=== PATIENT | male | born 1950 | race Caucasian/White ===

== ENCOUNTER 2020-03-12 14:12 | Inpatient (IN) | payer MEDICARE ==
[~2020-03-12] VITALS: Ht 182.9 cm; Wt 133.8 kg
--- NOTE | ~2020-03-12 | EC ---
PATIENT:BRANDI BROWN DATE OF SERVICE: 03/12/20 SEX: M MEDICAL RECORD: [id number] DATE OF : 50 LOCATION:D.M2 D.210 AGE OF PATIENT: 69 ADMISSION DATE: 03/12/20 REFERRING PHYSICIAN: INTERPRETING PHYSICIAN: CLARK VANCE MD ECHOCARDIOGRAM REPORT ECHO CHARGES 4 ECHO COMPLETE Date: 03/13/20 CLINICAL DIAGNOSIS: CMP ECHOCARDIOGRAPHIC MEASUREMENTS (adult normal given) AC root (d.<3.7cm) 3.5 cm LV Septum d (<1.2 cm> 1.1 cm Valve Excursion 1.7 cm LV Septum (systole) 1.3 cm Left Atria (s.<4.0cm> 4.2 cm LVPW d(<1.2cm) 1.0 cm RV (d.<2.3cm) 4.1 cm LVPW (sytole) 1.1 cm LV diastole(<5.6CM) 7.7 cm MV E-F(>70mm/sec) cm LV systole 6.3 cm LVOT Diameter 2.3 cm MV exc.(>10mm) 0.8 cm Est.ejection fraction (50-75%) % DOPPLER: LVIT cm/sec A 57 cm/sec E 124 cm/sec LA cm/sec RVSP 41 mmHg LVOT 57 cm/sec AOP1/2T m/s Asc. Ao 185 cm/sec RVOT 48 cm/sec RA cm/sec PA 102 cm/sec AV Gradient Peak 13.7 mmHg AV Mean 8.8 mmHg AV Area 1.5 cm MV Gradient Peak 7.6 mmHg MV Mean 3.0 mmHg MV Area cm COMMENTS: Communications Clerk: Elias BLACK Family Resource Management Specialist: 5 Dr. Vance TAPE# PACS Pericardial Effusion N DATE OF SERVICE: CLINICAL INDICATION: Cardiomyopathy. FINDINGS: Left ventricle - dilated left ventricular chamber size with severe global LV contractile dysfunction, ejection fraction 15% to 20%. Left atrial chamber mildly dilated. Right atrial and right ventricular chamber size and function appears normal. Mitral valve appears normal. Mild regurgitation. Aortic valve appears normal. No aortic stenosis/regurgitation. Tricuspid valve appears normal. Mild tricuspid regurgitation. Pulmonic valve appears normal. ECHOCARDIOGRAM REPORT [id number] BRANDI BROWN No pulmonic insufficiency. No pericardial effusion visualized. IMPRESSION: Dilated left ventricular chamber with severe global left ventricular contractile dysfunction with an ejection fraction of 15% to 20%. TRANSINT:[id number] Voice Confirmation ID: [id number] DOCUMENT ID: [id number] CLARK VANCE MD CC: [id number] DICTATION DATE: 03/14/20 1238 LIMITED RADIOLOGY TECHNICIAN: 03/14/20 1526 ADM IN [facility] [address] [id number]
[2020-03-12 14:41] VITALS: BP 117/65
[2020-03-12 14:48] LABS: BASOPHILS 0.3 % (0-2); EOSINOPHILS 5.7 % (0-7); HEMATOCRIT 27.3 % (42.0-54.0); HEMOGLOBIN 8.4 g/dL (13.5-17.5); LYMPHOCYTES 9.6 % (15-50); MCHC 30.8 g/dL (31.0-37.0); MCV 87.8 fL (80.0-100.0); MEAN PLATELET VOLUME 10.1 fL (7.4-10.4); MONOCYTES 11.8 % (2-11); NEUTROPHILS 71.6 % (40-80); PLATELET COUNT 115 10x3/uL (130-400); RBC 3.11 10x6/uL (4.20-6.10); RDW 17.1 % (11.5-14.5); WBC 5.8 10x3/uL (4.8-10.8)
[2020-03-12 15:04] LABS: APTT 43.3 SECONDS (22.8-39.4); INR 1.52 (0.85-1.17); PROTIME 18.1 SECONDS (11.6-15.0)
[2020-03-12 16:03] LABS: ANION GAP 12.9 mmol/L (8-16); CALCIUM 8.2 mg/dL (8.5-10.1); CARBON DIOXIDE 26.2 mmol/L (21.0-32.0); CREATININE - SERUM 3.8 mg/dL (0.6-1.3); POTASSIUM - SERUM 5.1 mmol/L (3.5-5.1)
[2020-03-12 16:06] VITALS: BP 117/65
[2020-03-12 16:09] LABS: ALBUMIN 3.5 g/dL (3.4-5.0); BILIRUBIN - TOTAL 0.58 mg/dL (0.2-1.3); PROTEIN - SERUM 5.9 g/dL (6.4-8.2)
--- NOTE | 2020-03-12 16:14 | NUR ---
BODY AUDIT WITH MULTIPLE AREAS, ABDOMEN OBESE, FIRM AND DISTENDED WITH 2 BANDAIDS NOTED FROM PREVIOUS DRAINAGE OF FLUID. LEFT ELBOW WITH BLEEDING SKIN TEAR, DRESSING CHANGED, BOTH LOWER LEGS WITH CELLULITIS, LEFT WITH OPEN BLISTERS AND WEEPING FLUID, DRESSING CHANGED AND PADS UNDER LEG. RIGHT KNEE WITH DRY SCALY SKIN NOTED. LEFT FOOT 2ND TOE WITH OPEN SCAB NOTED AND RIGHT FOOT GREAT TOE WITH OPEN BLISTER, DRESSING APPLIED. . RIGHT BUTTOCK WITH SHEARING NOTED, LEFT BUTTOCK WITH SCAB NOTED.
[2020-03-12 20:00] VITALS: BP 100/48
[2020-03-13] VITALS: BP 92/48
[2020-03-13 04:00] VITALS: BP 98/55
[2020-03-13] MEDS ORDERED: ENTRESTO 49 MG1 EACH PO (05:51)
[2020-03-13] MEDS ORDERED: ISOSORBIDE MONO20 MG PO (05:52)
[2020-03-13] MEDS ORDERED: VITAMIN D50000 UNI2 PO (05:53)
[2020-03-13] MEDS ORDERED: ANORO ELLIPTA1 EACH INH (05:53)
[2020-03-13] MEDS ORDERED: TRADJENTA5 MG PO (05:54)
[2020-03-13] MEDS ORDERED: TORSEMIDE20 MG PO (05:55)
[2020-03-13] MEDS ORDERED: COREG12.5 MG PO (05:56)
[2020-03-13] MEDS ORDERED: XANAX0.25 MG PO (05:57)
--- NOTE | 2020-03-13 07:16 | NUR ---
RECEIVE SHIFT REPORT. WAS TOLD THAT PATIENT WAS BLEEDING FROM RIGHT CHEST HEMOSPLIT AND DRESSING WAS CHANGED 3 TIMES PER ELECTRICIAN'S HELPER. WENT IN AND ASSESSED PATIENT WITH A SATURATED DRESSING. WE PLACED A SANDBAG ON AT 0716 WILL REASSESS IN 20-[address] MIN[address] WILL TALK WITH [address]. CORDON ABOUT THE PLAN. WILL CONTINUE TO MONITOR.
[2020-03-13 07:49] LABS: BASOPHILS 0.2 % (0-2); EOSINOPHILS 5.5 % (0-7); HEMATOCRIT 26.1 % (42.0-54.0); LYMPHOCYTES 17.5 % (15-50); MCHC 30.7 g/dL (31.0-37.0); MCV 88.2 fL (80.0-100.0); MEAN PLATELET VOLUME 9.6 fL (7.4-10.4); MONOCYTES 2.3 % (2-11); NEUTROPHILS 73.5 % (40-80); PLATELET COUNT 136 10x3/uL (130-400); RBC 2.96 10x6/uL (4.20-6.10); RDW 17.3 % (11.5-14.5); WBC 5.8 10x3/uL (4.8-10.8)
[2020-03-13 08:00] LABS: INR 1.29 (0.85-1.17)
[2020-03-13 08:13] LABS: % SATURATION 16 % (15-55); IRON 46 ug/dl (35-150); TOTAL IRON BIND CAPACITY 275 ug/dl (260-445); UNSAT IRON BIND CAPACITY 229 ug/dl (150-375)
[2020-03-13 08:34] LABS: ALBUMIN 3.2 g/dL (3.4-5.0); ANION GAP 11.1 mmol/L (8-16); BILIRUBIN - TOTAL 0.61 mg/dL (0.2-1.3); CALCIUM 8.3 mg/dL (8.5-10.1); CARBON DIOXIDE 28.3 mmol/L (21.0-32.0); CREATININE - SERUM 3.5 mg/dL (0.6-1.3); POTASSIUM - SERUM 5.4 mmol/L (3.5-5.1); PROTEIN - SERUM 5.6 g/dL (6.4-8.2)
--- NOTE | 2020-03-13 08:52 | NUR ---
RESUMED PATIENT HOME MEDICATION XANAX PER ORDERS FROM DR. CORDON
[2020-03-13 09:06] LABS: VANCOMYCIN - RANDOM 1.1 ug/mL (10.0-20.0)
[2020-03-13 10:44] VITALS: BP 107/61
[2020-03-13 13:47] VITALS: Ht 182.9 cm; Wt 133.8 kg
[2020-03-13 14:13] VITALS: BP 90/45
[2020-03-13 20:00] VITALS: BP 130/49
[2020-03-14 02:06] VITALS: BP 131/53
[2020-03-14 05:53] VITALS: BP 115/53
--- NOTE | 2020-03-14 05:56 | NUR ---
I have reviewed this patient and I concur with the Shift Assessment completed by the Licensed Practical Nurse today this shift.
[2020-03-14 07:14] LABS: HEP B CORE AB TOTAL Negative (Negative); HEPATITIS C ANTIBODY <0.1 (0.0-0.9)
[2020-03-14 07:36] LABS: BASOPHILS 0.3 % (0-2); EOSINOPHILS 3.1 % (0-7); HEMATOCRIT 28.2 % (42.0-54.0); HEMOGLOBIN 8.7 g/dL (13.5-17.5); IMMATURE GRANULOCYTES 0.9 % (0-5); LYMPHOCYTES 14.1 % (15-50); MCH 27.4 pg (26.0-34.0); MCHC 30.9 g/dL (31.0-37.0); MCV 88.7 fL (80.0-100.0); MEAN PLATELET VOLUME 9.9 fL (7.4-10.4); NEUTROPHILS 79.6 % (40-80); RBC 3.18 10x6/uL (4.20-6.10); RDW 17.2 % (11.5-14.5)
[2020-03-14 07:39] LABS: PLATELET COUNT 190 10x3/uL (130-400)
[2020-03-14 08:13] LABS: ALBUMIN 3.6 g/dL (3.4-5.0); ANION GAP 15.3 mmol/L (8-16); BILIRUBIN - TOTAL 0.78 mg/dL (0.2-1.3); CALCIUM 8.9 mg/dL (8.5-10.1); CARBON DIOXIDE 25.3 mmol/L (21.0-32.0); POTASSIUM - SERUM 5.6 mmol/L (3.5-5.1); PROTEIN - SERUM 6.6 g/dL (6.4-8.2); VANCOMYCIN - RANDOM 0.7 ug/mL (10.0-20.0)
[2020-03-14 08:38] VITALS: BP 115/67
[2020-03-14 08:50] LABS: INR 1.32 (0.85-1.17); PROTIME 16.2 SECONDS (11.6-15.0)
--- NOTE | 2020-03-14 09:22 | NUR ---
PT AWAKE AND OREINTED WHEN I ENTERED ROOM. REQUESTED TO GO TO BEDSIDE COMMODE. PT TRANSFERED SELF UNASSISTED. REFUSED TO TRANSFER BACK TO THE BED WHEN HE WAS FINISHED STATING HE DOES NOT FEEL LIKE IT BUT ALSO DOES NOT WANT TO SIT IN THE RECLINER. STILL ON BSC AT THIS TIME. ADMINSITERED PRN ANXIETY MEDICATION AND PAIN MEDS PER PTS REQUEST. CL IN REACH.
--- NOTE | 2020-03-14 10:07 | NUR ---
I have reviewed this patient and I concur with the Shift Assessment completed by the Licensed Practical Nurse today this shift.
[2020-03-14 11:56] VITALS: BP 99/51
--- NOTE | 2020-03-14 19:56 | NUR ---
PAGED TO SEE IF COULD GET SOMETHING ELSE FOR PAIN
--- NOTE | 2020-03-14 20:15 | NUR ---
SPOKE WITH ABBY, SHE ORDER A 1 TIME DOZE OF 50MG TRAMADOL
[2020-03-14 20:30] VITALS: BP 105/44
[2020-03-15 00:30] VITALS: BP 113/63
[2020-03-15 04:30] VITALS: BP 96/57
--- NOTE | 2020-03-15 05:00 | NUR ---
I have reviewed this patient and I concur with the Shift Assessment completed by the Licensed Practical Nurse today this shift.
[2020-03-15 07:25] LABS: ALBUMIN 3.5 g/dL (3.4-5.0); ANION GAP 13.9 mmol/L (8-16); BILIRUBIN - TOTAL 0.75 mg/dL (0.2-1.3); CALCIUM 8.4 mg/dL (8.5-10.1); CARBON DIOXIDE 26.1 mmol/L (21.0-32.0); CREATININE - SERUM 3.7 mg/dL (0.6-1.3)
[2020-03-15 07:29] LABS: INR 1.28 (0.85-1.17); PROTIME 15.9 SECONDS (11.6-15.0)
[2020-03-15 07:30] LABS: BASOPHILS 0.2 % (0-2); EOSINOPHILS 3.9 % (0-7); HEMATOCRIT 26.9 % (42.0-54.0); IMMATURE GRANULOCYTES 0.6 % (0-5); LYMPHOCYTES 5.3 % (15-50); MCH 26.6 pg (26.0-34.0); MCHC 29.7 g/dL (31.0-37.0); MCV 89.4 fL (80.0-100.0); MEAN PLATELET VOLUME 9.7 fL (7.4-10.4); MONOCYTES 10.3 % (2-11); NEUTROPHILS 79.7 % (40-80); PLATELET COUNT 161 10x3/uL (130-400); RBC 3.01 10x6/uL (4.20-6.10); RDW 17.4 % (11.5-14.5); WBC 8.7 10x3/uL (4.8-10.8)
[2020-03-15 08:32] VITALS: BP 103/57
[2020-03-15 12:40] VITALS: BP 127/52
--- NOTE | 2020-03-15 13:40 | NUR ---
PT AWAKE AND ORIENTED, LYING IN BED WHEN I ENTERED. TOOK ALL MEDICATIONS IWHTOUT COMPLICATIONS. TOLERATED ADB SCAN. NO COMPLAINTS OR CONCERNS. NO VISOTORS AT BEDSIDE. CL IN REACH, SRX2
--- NOTE | 2020-03-15 14:28 | MORECARE ---
CASE MANAGEMENT DISCHARGE SUMMARY PATIENT: BRANDI CORTEZ UNIT: [id number] ADM DATE: 03/12/20 AGE: 69 : 50 SEX: M ROOM/BED: D.2109 AUTHOR: NIGHATDOC PHYSICIAN: REFERRING PHYSICIAN: ROMARIO CORDON DO DATE OF SERVICE: 03/15/20 Discharge Plan Patient Name: BRANDI CORTEZ Facility: [facility]:[place] : 1950 Planned Disposition: SNF w Planned Readmission Anticipated Discharge Date: Discharge Date: Expected LOS: Initial Reviewer: [email or web address] Initial Review Date: 03/15/2020 Generated: 03/15/20 3:27 pm Comments DCP- Discharge Planning Updated by [email or web address]: Hallie Mariscal on 03/15/20 9:[address] CM called [facility] and spoke with Dario. Dario states patient is in the rehab part and he cannot come back today. States he will have to be evaluated again by admissions to come back to the rehab area. CM will continue to follow and assist with discharge planning/needs. DCPIA - Discharge Planning Initial Assessment Updated by [email or web address]: Hallie Mariscal on 03/15/20 2:25 pm * Is the patient Alert and Oriented? Yes * PCP Azalia Bradford NP at [facility] * Pharmacy [facility] in [place] * Preadmission Environment [facility] Facility * Facility Name [facility] * ADLs Partial Dependent * Partial ADLs (Assistance needed) Ambulation Dressing Medication Management Toileting Transfers * Equipment Other Oxygen * Other Equipment Portable oxygen * List name and contact numbers for known caregivers / representatives who currently or will assist patient after discharge: Betsy Cortez - DTR - [phone] * Verbal permission to speak to the caregivers and representatives has been obtained from the patient. Yes * Community resources currently utilized Home Health Other * Please name any agencies selected above. Dialysis at [facility] in [place] MWF at [address] home health in the past * Additional services required to return to the preadmission environment? No * Can the patient safely return to the preadmission environment? Yes * Has this patient been hospitalized within the prior 30 days at any hospital? Yes External Providers External Provider: [facility] Next Contact Date: Service Request Date: Service Type: Resolution: Reviewer: Comments: Patient Name: BRANDI CORTEZ Page [phone] at 1428 All edits/amendments must be made on the electronic document DICTATION DATE: 03/15/201426 STREET VENDOR: LUCAS 03/15/201426 RPT#: [id number] DC DATE: STATUS: ADM IN [facility] [address] [place] [address] END OF REPORT
--- NOTE | 2020-03-15 14:37 | MORECARE ---
CASE MANAGEMENT DISCHARGE SUMMARY PATIENT: BRANDI BROWN UNIT: [id number] ADM DATE: 03/12/20 AGE: 69 : 50 SEX: M ROOM/BED: D.2104 AUTHOR: NIGHATDOC PHYSICIAN: REFERRING PHYSICIAN: ROMARIO CORDON DO DATE OF SERVICE: 03/15/20 Discharge Plan Patient Name: BRANDI BROWN Facility: [facility]:[place] : 1950 Planned Disposition: SNF w Planned Readmission Anticipated Discharge Date: Discharge Date: Expected LOS: Initial Reviewer: [email or web address] Initial Review Date: 03/15/2020 Generated: 03/15/20 3:37 pm Comments DCP- Discharge Planning Updated by [email or web address]: Hallie Mariscal on 03/15/20 1:[address] Patient Name: BRANDI BROWN Admission Status: Elective Accout number: [id number] Admission Date: 03-12-2020 : 1950 Admission Diagnosis: Attending: RAYRAY Current LOS: 3 Anticipated DC Date: Planned Disposition: SNF w Planned Readmission Primary Insurance: MEDICARE A & B DC PLAN: [facility] ANTICIPATED NEEDS: P/U to be provided by [facility] CM met with patient to complete initial dc planning assessment. CM educated patient on the CM role and verbal consent given by patient to complete assessment. CM verified patient's address, phone number, and emergency contact phone numbers. Patient is currently in rehab @ [facility] in [place]. At discharge patient plans to return to Nursing and Rehab and feels this is a safe discharge. ORTIZ form signed by patient for return to [facility]. Signed form placed in chart and signed form given to patient. Patient is asking about getting a motorized wheelchair and a ramp built for his home. I informed him that [facility] social workers will assist with his request. He understands that Medicare will not pay for DME needed for the home when discharging to a rehab until close to discharge from rehab. He is considering the possibility of living with family or in [facility] franchise manager if unable to return to his home. Transportation provider at discharge will be the facility . CM will continue to follow and will assist as needed with dc plans/needs. Customer Contact Representative: Hallie Mariscal DCP- Discharge Planning Updated by [email or web address]: Hallie Mariscal on 03/15/20 9:[address] CM called [facility] and spoke with Dario. Dario states patient is in the rehab part and he cannot come back today. States he will have to be evaluated again by admissions to come back to the rehab area. CM will continue to follow and assist with discharge planning/needs. DCPIA - Discharge Planning Initial Assessment Updated by [email or web address]: Hallie Mariscal on 03/15/20 2:25 pm * Is the patient Alert and Oriented? Yes * PCP Azalia Bradford NP at [facility] * Pharmacy [facility] in [place] * Preadmission Environment Long-Term Facility * Facility Name [facility] * ADLs Partial Dependent * Partial ADLs (Assistance needed) Ambulation Dressing Medication Management Toileting Transfers * Equipment Other Oxygen * Other Equipment Portable oxygen * List name and contact numbers for known caregivers / representatives who currently or will assist patient after discharge: Betsy Diego [facility] - [phone] * Verbal permission to speak to the caregivers and representatives has been obtained from the patient. Yes * Community resources currently utilized Home Health Other * Please name any agencies selected above. Dialysis at [facility] in [place] MWF at [address] [place] home health in the past * Additional services required to return to the preadmission environment? No * Can the patient safely return to the preadmission environment? Yes * Has this patient been hospitalized within the prior 30 days at any hospital? Yes Coverage Notice Reviewer: [email or web address] Cornelio Mariscal Notice Issued Date-Time: 03/15/2020 14:15 Notice Type: IM Discharge Notice Notice Delivered To: Patient Relationship to Patient: Self Morning Nanny Name: Delivery Method: HAND - Hand Delivered Mariangel Days: Prior Verbal Notification: Recipient Understood Notice: Yes Recipient Signature: Yes Med Rec Note Co-signed by Attending: Coverage Notice Comment: IMM explained, signed, given, copy placed in MR Reviewer: [id number] Cornelio Mariscal Notice Issued Date-Time: 03/15/2020 14:31 Notice Type: Patient Choice Letter Notice Delivered To: Patient Relationship to Patient: Self Morning Nanny Name: Delivery Method: HAND - Hand Delivered Mariangel Days: Prior Verbal Notification: Recipient Understood Notice: Yes Recipient Signature: Yes Med Rec Note Co-signed by Attending: Coverage Notice Comment: ORTIZ for Cody Mooney DP export: 03/15/20 1:28 Patient Name: BRANDI BROWN Page [phone] at 1437 All edits/amendments must be made on the electronic document DICTATION DATE: 03/15/201435 [place] REMOTE SENSING SCIENTIST: LUCAS 03/15/201435 RPT#: [id number] DC DATE: STATUS: ADM IN [facility] [address] [place] [address] END OF REPORT
--- NOTE | 2020-03-15 15:17 | NUR ---
PT AWAKE AND ORIENTED, LYING IN BED. WATCHING TV. NO COMPLAINTS OR CONCERNS AT THIS TIME. WILL CNT. TO MONITOR. CL IN REACH, SRX2.
--- NOTE | 2020-03-15 15:30 | NUR ---
I have reviewed this patient and I concur with the Shift Assessment completed by the Licensed Practical Nurse today this shift.
--- NOTE | 2020-03-15 15:31 | NUR ---
I have reviewed this patient and I concur with the Shift Assessment completed by the Licensed Practical Nurse today this shift.
--- NOTE | 2020-03-15 19:30 | NUR ---
RECEIVED REPORT, WILL ASSUME CARE OF PT,PT SLEEPING, NO DISTRESS NOTICED AT THIS TIME, BED IS LOW, SRX2, CALL LIGHT IN REACH, WILL CONTINUE PLAN OF CARE
[2020-03-15 20:46] VITALS: BP 127/41
[2020-03-16 01:31] VITALS: BP 104/59
--- NOTE | 2020-03-16 01:37 | NUR ---
I have reviewed this patient and I concur with the Shift Assessment completed by the Licensed Practical Nurse today this shift.
[2020-03-16 05:41] VITALS: BP 109/60
[2020-03-16 06:23] LABS: BASOPHILS 0.2 % (0-2); EOSINOPHILS 3.6 % (0-7); HEMATOCRIT 29.4 % (42.0-54.0); HEMOGLOBIN 8.7 g/dL (13.5-17.5); IMMATURE GRANULOCYTES 0.6 % (0-5); LYMPHOCYTES 7.8 % (15-50); MCH 26.5 pg (26.0-34.0); MCHC 29.6 g/dL (31.0-37.0); MCV 89.6 fL (80.0-100.0); MEAN PLATELET VOLUME 9.5 fL (7.4-10.4); MONOCYTES 6.4 % (2-11); NEUTROPHILS 81.4 % (40-80); RBC 3.28 10x6/uL (4.20-6.10); RDW 17.6 % (11.5-14.5); WBC 10.4 10x3/uL (4.8-10.8)
[2020-03-16 06:33] LABS: PLATELET COUNT 196 10x3/uL (130-400)
[2020-03-16 07:17] LABS: ALBUMIN 3.6 g/dL (3.4-5.0); ANION GAP 16.3 mmol/L (8-16); BILIRUBIN - TOTAL 0.78 mg/dL (0.2-1.3); CALCIUM 9.1 mg/dL (8.5-10.1); CARBON DIOXIDE 25.1 mmol/L (21.0-32.0); CREATININE - SERUM 4.3 mg/dL (0.6-1.3); POTASSIUM - SERUM 5.4 mmol/L (3.5-5.1); PROTEIN - SERUM 6.9 g/dL (6.4-8.2)
[2020-03-16 08:02] VITALS: BP 117/73
[2020-03-16 08:43] LABS: TROPONIN-I 0.306 ng/mL (0.000-0.060)
[2020-03-16 11:56] VITALS: BP 98/59
[2020-03-16 12:09] LABS: HEPATITIS BE ANTIGEN Negative (Negative)
--- NOTE | 2020-03-16 12:31 | NUR ---
Nutrition Follow-up: Did not eat breakfast this AM; c/o pain and heartburn. Also still c/o constipation. Noted plans for paracentesis tomorrow. Diet: Renal ADA Wt: 295# (03/13) Labs noted: Na 130, K+ 5.4, Glu 108, Alb 3.6 Meds noted: Carafate, Mylanta, Pepcid -Encourage PO intake and honor food preferences within diet restrictions. -RD following.
[2020-03-16 14:10] LABS: CKMB 4.6 U/L (0.0-3.6)
[2020-03-16 14:14] LABS: TROPONIN-I 0.209 ng/mL (0.000-0.060)
--- NOTE | 2020-03-16 14:54 | NUR ---
PT ESCROTED OUT TO DIALYISS VIA BED.
--- NOTE | 2020-03-16 17:52 | NUR ---
PT IN DIALYSIS
--- NOTE | 2020-03-16 18:02 | NUR ---
I have reviewed this patient and I concur with the Shift Assessment completed by the Licensed Practical Nurse today this shift.
--- NOTE | 2020-03-16 19:30 | NUR ---
RECEIVED REPORT, WILL ASSUSME CARE OF PT, SITTING ON SIDE OF BED, DENIES ANY NEEDS AT THIS TIME, BED IS LOW, SRX2, CALL LIGHT IN REACH, WILL CONTINUE PLAN OF CARE
[2020-03-16 23:15] VITALS: BP 112/53
[2020-03-17 03:03] VITALS: BP 91/52
--- NOTE | 2020-03-17 03:28 | NUR ---
I have reviewed this patient and I concur with the Shift Assessment completed by the Licensed Practical Nurse today this shift.
[2020-03-17 05:51] LABS: BASOPHILS 0.3 % (0-2); EOSINOPHILS 3.7 % (0-7); HEMATOCRIT 26.6 % (42.0-54.0); HEMOGLOBIN 7.9 g/dL (13.5-17.5); IMMATURE GRANULOCYTES 0.5 % (0-5); LYMPHOCYTES 11.1 % (15-50); MCH 26.8 pg (26.0-34.0); MCHC 29.7 g/dL (31.0-37.0); MCV 90.2 fL (80.0-100.0); MEAN PLATELET VOLUME 9.2 fL (7.4-10.4); MONOCYTES 2.7 % (2-11); NEUTROPHILS 81.7 % (40-80); PLATELET COUNT 183 10x3/uL (130-400); RBC 2.95 10x6/uL (4.20-6.10); RDW 17.9 % (11.5-14.5); WBC 7.8 10x3/uL (4.8-10.8)
[2020-03-17 06:11] VITALS: BP 100/41
[2020-03-17 06:31] LABS: ALBUMIN 3.4 g/dL (3.4-5.0); ANION GAP 10.8 mmol/L (8-16); BILIRUBIN - TOTAL 0.92 mg/dL (0.2-1.3); CALCIUM 8.7 mg/dL (8.5-10.1); CARBON DIOXIDE 29.9 mmol/L (21.0-32.0); CREATININE - SERUM 3.8 mg/dL (0.6-1.3); POTASSIUM - SERUM 4.7 mmol/L (3.5-5.1); PROTEIN - SERUM 6.2 g/dL (6.4-8.2)
[2020-03-17 07:00] VITALS: BP 113/68
[2020-03-17 08:07] LABS: APTT 34.1 SECONDS (22.8-39.4); INR 1.46 (0.85-1.17); PROTIME 17.6 SECONDS (11.6-15.0)
[2020-03-17 10:30] VITALS: BP 117/57
--- NOTE | 2020-03-17 19:00 | NUR ---
REPORT RECEIVED, WILL CONTINUE POC. PATIENT IS A&O, SITTING UP ON SIDE OF BED. NO S/S OF DISTRESS OBSERVED, RR EVEN AND UNLABORED ON 2L O2 VIA NC. PIV TO RT FA, SL. RT CHEST HEMOSPLIT DRSG C/D/I. SIGNIFICANT BRUISING NOTICED FROM RT SIDE OF NECK DOWN TO RT LOWER ABDOMEN. BLE EDEMA NOTED, WEEPING AND BLISTERES TO LT LOWER LEG. RT GREAT TOE DRSG C/D/I. PATIENT DENIES NEEDS AT THIS TIME. CL IN REACH, BED LOCKED AND LOWERED. WILL CTM.
[2020-03-17 20:00] VITALS: BP 106/63
[2020-03-18] VITALS: BP 91/53
[2020-03-18 04:00] VITALS: BP 181/61
[2020-03-18 05:36] LABS: BASOPHILS 0.3 % (0-2); EOSINOPHILS 2.8 % (0-7); HEMOGLOBIN 8.4 g/dL (13.5-17.5); IMMATURE GRANULOCYTES 0.6 % (0-5); LYMPHOCYTES 5.6 % (15-50); MEAN PLATELET VOLUME 9.4 fL (7.4-10.4); MONOCYTES 8.3 % (2-11); NEUTROPHILS 82.4 % (40-80); PLATELET COUNT 212 10x3/uL (130-400); RBC 3.11 10x6/uL (4.20-6.10); RDW 18.6 % (11.5-14.5); WBC 8.7 10x3/uL (4.8-10.8)
[2020-03-18 06:17] LABS: ALBUMIN 3.6 g/dL (3.4-5.0); BILIRUBIN - TOTAL 1.12 mg/dL (0.2-1.3); CALCIUM 9.2 mg/dL (8.5-10.1); CREATININE - SERUM 4.2 mg/dL (0.6-1.3); PROTEIN - SERUM 6.7 g/dL (6.4-8.2)
[2020-03-18 06:43] LABS: APTT 28.2 SECONDS (22.8-39.4); INR 1.27 (0.85-1.17); PROTIME 15.8 SECONDS (11.6-15.0)
[2020-03-18 07:29] VITALS: BP 103/64
--- NOTE | 2020-03-18 07:53 | NUR ---
REVIEWED HARD CHART FOR CT PARACENTHESIS TODAY. NO BLOOD CONSENT IN IT. DONE
--- NOTE | 2020-03-18 08:25 | NUR ---
ROUNDING DONE WITH PATIENT SITTING ON SIDE OF BED. ABDOMEN IS DISTENDED. FOR CT PARACENTHESIS TODAY. NPO STATUS. CONSENTS SIGNED. GLASSES ON. ON HEART MONITOR. PACEMAKER FELT TO LEFT CHEST WALL. RIGHT HEMISPLIT SEEN WITH DRY INTACT DRESSING.
--- NOTE | 2020-03-18 09:36 | NUR ---
TO DIALYSIS VIA BED AND PORTABLE O2. CHG BATH WAS GIVEN WITH COMPLETE LINEN CHANGE. LEFT LOWER LEG WITH LARGE BLISTER AT TOP OF WILLIS SEEN. VASOLINE GUAZE AND WRAPPED WITH JAILYN WITH STOCKINGNET PLACED OVER THIS. RIGHT LOWER LEG WEEPING, PATIENT DOES NOT WANT IT WRAPPED. PATIENT ASKED FOR XANAX BUT BLOOD PRESSURE IS 103.
--- NOTE | 2020-03-18 10:34 | NUR ---
1ST UNIT OF BLOOD TO BE GIVEN PER DIALYSIS WITH JACKI GILMORE .
--- NOTE | 2020-03-18 12:24 | NUR ---
RETURNS TO ROOM VIA BED.
--- NOTE | 2020-03-18 12:45 | NUR ---
1215-TO RADIOLOGY VIA BED.
--- NOTE | 2020-03-18 13:56 | NUR ---
BACK FROM ROOM FROM PARACENTHESIS. ALBUMIN IS INFUSING. WILL ORDER TRAY.
--- NOTE | 2020-03-18 14:04 | NUR ---
LARGE BRUISED AREA SEEN TO RIGHT SIDE NECK AND PPER CHEST AREA. RIGHT HEMISPLIT SEEN WITH DRY DRESSING.
--- NOTE | 2020-03-18 14:23 | NUR ---
CALL PLACED TO ABBY LARA APN TO STOOL SOFTNER AND LAXATIVE. NEW ORDERS PLACED.
[2020-03-18 15:55] VITALS: BP 119/72
--- NOTE | 2020-03-18 19:00 | NUR ---
REPORT RECEIVED, WILL CONTINUE POC. PATIENT IS SITTING UP AT BEDSIDE, VISIBLE UNCOMFORTABLE. DR. CORDON AT BEDSIDE. NO S/S OF DISTRESS OBSERVED, RR EVEN AND UNLABORED ON 2L O2 VIA NC. PIV TO RT FA, SL. PATIENT DENIES NEEDS AT THIS TIME. CL IN REACH, BED LOCKED AND LOWERED. WILL CTM.
[2020-03-18 20:00] VITALS: BP 111/55
--- NOTE | 2020-03-18 20:50 | NUR ---
ADMINISTERED HS MEDS WITHOUT DIFFICULTY WITH NORCO PER REQUEST. ASSISTED PATIENT TO BSC X1 ASSIST. PATIENT DENIES FURTHER NEEDS AT THIS TIME. CL IN REACH, BED LOCKED AND LOWERED. WILL CTM.
--- NOTE | 2020-03-18 23:28 | NUR ---
ADMINISTERED PRN MORPHINE PER ORDERS. DR. FLORES AT BEDSIDE DRESSING BLE.
--- NOTE | 2020-03-19 06:47 | MORECARE ---
CASE MANAGEMENT DISCHARGE SUMMARY PATIENT: BRANDI CORTEZ UNIT: [id number] ADM DATE: 03/12/20 AGE: 69 : 50 SEX: M ROOM/BED: D.2100 AUTHOR: ADÁN DISLA PHYSICIAN: REFERRING PHYSICIAN: ROMARIO CORDON DO DATE OF SERVICE: 03/19/20 Discharge Plan Patient Name: BRANDI CORTEZ Facility: [facility]:[place] : 1950 Planned Disposition: SNF w Planned Readmission Anticipated Discharge Date: Discharge Date: Expected LOS: Initial Reviewer: [email or web address] Initial Review Date: 03/15/2020 Generated: 03/19/20 7:46 am Comments DCP- Discharge Planning Updated by [email or web address]: Hallie Mariscal on 03/19/20 5:[address] UPDATED NOTES WITH WOUND CARE ORDERS FROM DR FLORES FAXED TO [facility]. CM WILL CONTINUE TO FOLLOW AND ASSIST WITH DC PLANNING/NEEDS. DCP- Discharge Planning Updated by [email or web address]: Hallie Mariscal on 03/15/20 1:[address] Patient Name: BRANDI CORTEZ Admission Status: Elective Accout number: [id number] Admission Date: 03-12-2020 : 1950 Admission Diagnosis: Attending: RAYRAY Current LOS: 3 Anticipated DC Date: Planned Disposition: SNF w Planned Readmission Primary Insurance: MEDICARE A & B DC PLAN: [facility] ANTICIPATED NEEDS: P/U to be provided by [facility] CM met with patient to complete initial dc planning assessment. CM educated patient on the CM role and verbal consent given by patient to complete assessment. CM verified patient's address, phone number, and emergency contact phone numbers. Patient is currently in rehab @ [facility] in [place]. At discharge patient plans to return to Nursing and Rehab and feels this is a safe discharge. ORTIZ form signed by patient for return to [facility]. Signed form placed in chart and signed form given to patient. Patient is asking about getting a motorized wheelchair and a ramp built for his home. I informed him that [facility] social workers will assist with his request. He understands that Medicare will not pay for DME needed for the home when discharging to a rehab until close to discharge from rehab. He is considering the possibility of living with family or in [facility] terminal make up operator if unable to return to his home. Transportation provider at discharge will be the facility . CM will continue to follow and will assist as needed with dc plans/needs. Mixing Roll Operator: Hallie Mariscal DCP- Discharge Planning Updated by [email or web address]: Hallie Mariscal on 03/15/20 9:[address] CM called [facility] and spoke with Dario. Dario states patient is in the rehab part and he cannot come back today. States he will have to be evaluated again by admissions to come back to the rehab area. CM will continue to follow and assist with discharge planning/needs. DCPIA - Discharge Planning Initial Assessment Updated by [email or web address]: Hallie Mariscal on 03/15/20 2:25 pm * Is the patient Alert and Oriented? Yes * PCP Azalia Bradford NP at [facility] * Pharmacy [facility] in [place] * Preadmission Environment Jail Facility * Facility Name [facility] * ADLs Partial Dependent * Partial ADLs (Assistance needed) Ambulation Dressing Medication Management Toileting Transfers * Equipment Other Oxygen * Other Equipment Portable oxygen * List name and contact numbers for known caregivers / representatives who currently or will assist patient after discharge: Betsy Cortez [facility] - [phone] * Verbal permission to speak to the caregivers and representatives has been obtained from the patient. Yes * Community resources currently utilized Home Health Other * Please name any agencies selected above. Dialysis at [facility] in [place] MWF at [address] home health in the past * Additional services required to return to the preadmission environment? No * Can the patient safely return to the preadmission environment? Yes * Has this patient been hospitalized within the prior 30 days at any hospital? Yes Coverage Notice Reviewer: [id number] Cornelio Mariscal Notice Issued Date-Time: 03/15/2020 14:15 Notice Type: IM Discharge Notice Notice Delivered To: Patient Relationship to Patient: Self Banquet Line Cook Name: Delivery Method: HAND - Hand Delivered Mariangel Days: Prior Verbal Notification: Recipient Understood Notice: Yes Recipient Signature: Yes Med Rec Note Co-signed by Attending: Coverage Notice Comment: IMM explained, signed, given, copy placed in MR Reviewer: [id number] Cornelio Mariscla Notice Issued Date-Time: 03/15/2020 14:31 Notice Type: Patient Choice Letter Notice Delivered To: Patient Relationship to Patient: Self Banquet Line Cook Name: Delivery Method: HAND - Hand Delivered Mariangel Days: Prior Verbal Notification: Recipient Understood Notice: Yes Recipient Signature: Yes Med Rec Note Co-signed by Attending: Coverage Notice Comment: ORTIZ for Cody Mooney DP export: 03/15/20 1:37 Patient Name: BRANDI CORTEZ Page 60400 at 0647 All edits/amendments must be made on the electronic document DICTATION DATE: 03/19/20645 RIVER EXPEDITION GUIDE: LUCAS 03/19/20645 RPT#: [id number] DC DATE: STATUS: ADM IN [facility] [address] [place] [address] END OF REPORT
[2020-03-19 09:17] VITALS: BP 110/76
--- NOTE | 2020-03-19 11:14 | NUR ---
PT SITTING UP ON SIDE OF BED. PT ENCOURAGED TO LAY DOWN AND ELEVATE FEET. PT VERBALIZES UNDERSTANDING BUT REFUSES AND STATES "I DONT WANT TO LAY DOWN RIGHT NOW". PT EDUCATED ON PLAN OF CARE AND IMPORTANCE OF ELEVATING LOWER EXTREMITIES. PT VERBALIZES UNDERSTANDING AND CONT TO REFUSE. BED IS IN THE LOWEST POSITION. CALL LIGHT AND BEDSIDE TABLE ARE WITHIN REACH. SIDE RAILS X 2. PT DENIES FURTHER NEEDS. WILL CONT TO MONITOR.
--- NOTE | 2020-03-19 12:26 | NUR ---
Nutrition Follow-up: Ate 100% of breakfast this AM. S/p paracentesis yesterday (-4.5 L); HD yesterday as well. Diet: Renal ADA Wt: 295# (03/13) Labs reviewed Meds noted: Miralax, Colace, Mylanta, Carafate, Pepcid -RD following.
--- NOTE | 2020-03-19 14:33 | NUR ---
PT SITTING ON SIDE OF BED. PT ENCOURAGED TO LAY DOWN TO ELEVAT LOWER EXTREMITIES. PT STATES "I DONT WANT TO LAY DOWN RIGHT NOW". PT EDUCATED ON PLAN OF CARE AND IMPORTANCE OF ELEVATION. PT VERBALIZES UNDERSTANDING AND CONT TO REFUSE TO ELEVATE BLE AT THIS TIME. PT DENIES FURTHER NEEDS. BED IS IN THE LOWEST POSITION. CALL LIGHT AND BEDSIDE TABLE ARE WITHIN REACH. SIDE RAILS X 2. PT DENIES FURTHER NEEDS. WILL CON TO MONITOR.
--- NOTE | 2020-03-19 15:22 | NUR ---
PT IS RESTING IN BED WITH EYES CLOSED. RESPIRATIONS ARE EVEN AND UNLABORED. PT IS EASILY AROUSED WITH VERBAL STIMULATION. PT IS AAO X 4 UPON AROUSAL. ABDOMEN IS DISTENDED. BS HYPOACTIVE X 4. BRUISING NOTED TO RIGHT SIDE FROM EAR TO GROIN. PT WITH PACEMAKER. RIGHT CHEST HEMOSPLIT IN PLACE. DRESSING IS CDI. DRESSING TO BLE IS CDI. PT DENIES PRESENCE OF N/V/DYSPNEA/DIZZINESS. PIV TO RIGHT FA IS SL AND FLUSHES WITHOUT DIFFICULTY. BED IS IN THE LOWEST POSITION. CALL LIGHT AND BEDSIDE TABLE ARE WITHIN REACH. SIDE RAILS X 2. PT DENIES FURTHER NEEDS. WILL CONT TO MONITOR.
[2020-03-19 16:00] VITALS: BP 112/68
--- NOTE | 2020-03-19 17:47 | NUR ---
PT ENCOURAGED TO REST IN BED LAYING DOWN WITH BLE ELEVATED. PT CONT TO REFUSE. PT EDUCATED ON PLAN OF CARE AND IMPORTANCE OF ELEVATION. PT VERBALIZE UNDERSTANDING AND CONT TO REFUSE AT THIS TIME. BED IS IN THE LOWEST POSITION. CALL LIGHT AND BEDSIDE TABLE ARE WITHIN REACH. SIDE RAILS X 2. PT DENIES FURTHER NEEDS. WILL CONT TO MONITOR.
[2020-03-19 20:00] VITALS: BP 104/83
[2020-03-20 04:00] VITALS: BP 113/75
[2020-03-20 09:00] VITALS: BP 105/65
--- NOTE | 2020-03-20 11:41 | MORECARE ---
CASE MANAGEMENT DISCHARGE SUMMARY PATIENT: BRANDI CORTEZ UNIT: [id number] ADM DATE: 03/12/20 AGE: 69 : 50 SEX: M ROOM/BED: D.2108 AUTHOR: NIGHAT,DOC PHYSICIAN: REFERRING PHYSICIAN: ROMARIO CORDON DO DATE OF SERVICE: 03/20/20 Discharge Plan Patient Name: BRANDI CORTEZ Facility: [facility]:[place] : 1950 Planned Disposition: SNF w Planned Readmission Anticipated Discharge Date: 03/23/20 Discharge Date: Expected LOS: 11 Initial Reviewer: [id number] Initial Review Date: 03/15/2020 Generated: 03/20/20 12:40 pm Comments DCP- Discharge Planning Updated by [email or web address]: Denise Carrillo on 03/20/20 10:[address] CM spoke with Cody Moffett regarding probable DC on Monday. Per Betina, the patient will return to a SNF bed. Betina asks if family can transport patient back to the facility. CM contacted Betsy Cortez (dtr) [phone], regarding transportation on Monday. Betsy states she cannot take off, but will reach out to her brother to see if he could transport patient back to [facility]. DCP- Discharge Planning Updated by [email or web address]: Hallie Mariscal on 03/19/20 5:[address] UPDATED NOTES WITH WOUND CARE ORDERS FROM DR FLORES FAXED TO [facility]. CM WILL CONTINUE TO FOLLOW AND ASSIST WITH DC PLANNING/NEEDS. DCP- Discharge Planning Updated by [email or web address]: Hallie Mariscal on 03/15/20 1:[address] Patient Name: BRANDI CORTEZ Admission Status: Elective Accout number: [id number] Admission Date: 03-12-2020 : 1950 Admission Diagnosis: Attending: RAYRAY Current LOS: 3 Anticipated DC Date: Planned Disposition: SNF w Planned Readmission Primary Insurance: MEDICARE A & B DC PLAN: [facility] [place] ANTICIPATED NEEDS: P/U to be provided by [facility] CM met with patient to complete initial dc planning assessment. CM educated patient on the CM role and verbal consent given by patient to complete assessment. CM verified patient's address, phone number, and emergency contact phone numbers. Patient is currently in rehab @ [facility] in [place]. At discharge patient plans to return to Nursing and Rehab and feels this is a safe discharge. ORTIZ form signed by patient for return to [facility]. Signed form placed in chart and signed form given to patient. Patient is asking about getting a motorized wheelchair and a ramp built for his home. I informed him that [facility] social workers will assist with his request. He understands that Medicare will not pay for DME needed for the home when discharging to a rehab until close to discharge from rehab. He is considering the possibility of living with family or in [facility] longterm if unable to return to his home. Transportation provider at discharge will be the facility . CM will continue to follow and will assist as needed with dc plans/needs. Bookkeeping Clerk: Hallie Mariscal DCP- Discharge Planning Updated by [email or web address]: Hallie Mariscal on 03/15/20 9:[address] CM called [facility] and spoke with Dario. Dario states patient is in the rehab part and he cannot come back today. States he will have to be evaluated again by admissions to come back to the rehab area. CM will continue to follow and assist with discharge planning/needs. DCPIA - Discharge Planning Initial Assessment Updated by [id number]: Hallie Mariscal on 03/15/20 2:25 pm * Is the patient Alert and Oriented? Yes * PCP Azalia Bradford NP at [facility] * Pharmacy [facility] in [place] * Preadmission Environment Care Home Facility * Facility Name [facility] * ADLs Partial Dependent * Partial ADLs (Assistance needed) Ambulation Dressing Medication Management Toileting Transfers * Equipment Other Oxygen * Other Equipment Portable oxygen * List name and contact numbers for known caregivers / representatives who currently or will assist patient after discharge: Betsytariq Cortez - R - [phone] * Verbal permission to speak to the caregivers and representatives has been obtained from the patient. Yes * Community resources currently utilized Home Health Other * Please name any agencies selected above. Dialysis at [facility] in [place] MWF at [address] [facility] health in the past * Additional services required to return to the preadmission environment? No * Can the patient safely return to the preadmission environment? Yes * Has this patient been hospitalized within the prior 30 days at any hospital? Yes Coverage Notice Reviewer: [id number] Cornelio Mariscal Notice Issued Date-Time: 03/15/2020 14:15 Notice Type: IM Discharge Notice Notice Delivered To: Patient Relationship to Patient: Self Ammonia Refrigeration Technician Name: Delivery Method: HAND - Hand Delivered Mariangel Days: Prior Verbal Notification: Recipient Understood Notice: Yes Recipient Signature: Yes Med Rec Note Co-signed by Attending: Coverage Notice Comment: IMM explained, signed, given, copy placed in MR Reviewer: [id number] Cornelio Mariscal Notice Issued Date-Time: 03/15/2020 14:31 Notice Type: Patient Choice Letter Notice Delivered To: Patient Relationship to Patient: Self Ammonia Refrigeration Technician Name: Delivery Method: HAND - Hand Delivered Mariangel Days: Prior Verbal Notification: Recipient Understood Notice: Yes Recipient Signature: Yes Med Rec Note Co-signed by Attending: Coverage Notice Comment: ORTIZ for Cody Garcia Last DP export: 03/19/20 5:47 Patient Name: BRANDI CORTEZ Page [id number] at 1141 All edits/amendments must be made on the electronic document DICTATION DATE: 03/20/20 1140 EMPLOYMENT COORDINATOR: LUCAS 03/20/20 1140 RPT#: [id number] DC DATE: STATUS: ADM IN [facility] [address] [place] [address] END OF REPORT
--- NOTE | 2020-03-20 13:27 | MORECARE ---
CASE MANAGEMENT DISCHARGE SUMMARY PATIENT: BRANDI CORTEZ UNIT: [id number] ADM DATE: 03/12/20 AGE: 69 : 50 SEX: M ROOM/BED: D.210 AUTHOR: NIGHAT,DOC PHYSICIAN: REFERRING PHYSICIAN: ROMARIO CORDON DO DATE OF SERVICE: 03/20/20 Discharge Plan Patient Name: BRANDI CORTEZ Facility: [facility]:[place] : 1950 Planned Disposition: SNF w Planned Readmission Anticipated Discharge Date: 03/23/20 Discharge Date: Expected LOS: 11 Initial Reviewer: [email or web address] Initial Review Date: 03/15/2020 Generated: 03/20/20 2:26 pm Comments DCP- Discharge Planning Updated by [id number]: Denise Carrillo on 03/20/20 12:[address] 1100: CM contacted Betsy Cortez (dtr) [phone], regarding transportation for DC on Monday. 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 If it's in the afternoon, Betsy will have to take off from her work in order to pick him up. GLENNA spoke with Amie Moffett regarding probable DC on Monday. Per Betina, the patient will return to a SNF bed. Betina asks if family can transport patient back to the facility. GLENNA contacted Betsy Cortez (dtr) [phone], regarding transportation on Monday. Betsy states she cannot take off, but will reach out to her brother to see if he could transport patient back to [facility]. DCP- Discharge Planning Updated by [email or web address]: Hallie Mariscal on 03/19/20 5:[address] UPDATED NOTES WITH WOUND CARE ORDERS FROM DR FLORES FAXED TO [facility]. CM WILL CONTINUE TO FOLLOW AND ASSIST WITH DC PLANNING/NEEDS. DCP- Discharge Planning Updated by [id number]: Hallie Mariscal on 03/15/20 1:[address] Patient Name: BRANDI CORTEZ Admission Status: Elective Accout number: [id number] Admission Date: 03-12-2020 : 1950 Admission Diagnosis: Attending: RAYRAY Current LOS: 3 Anticipated DC Date: Planned Disposition: SNF w Planned Readmission Primary Insurance: MEDICARE A & B DC PLAN: [facility] ANTICIPATED NEEDS: P/U to be provided by [facility] CM met with patient to complete initial dc planning assessment. CM educated patient on the CM role and verbal consent given by patient to complete assessment. CM verified patient's address, phone number, and emergency contact phone numbers. Patient is currently in rehab @ [facility] in [place]. At discharge patient plans to return to Nursing and Rehab and feels this is a safe discharge. ORTIZ form signed by patient for return to [facility]. Signed form placed in chart and signed form given to patient. Patient is asking about getting a motorized wheelchair and a ramp built for his home. I informed him that [facility] social workers will assist with his request. He understands that Medicare will not pay for DME needed for the home when discharging to a rehab until close to discharge from rehab. He is considering the possibility of living with family or in [facility] residential if unable to return to his home. Transportation provider at discharge will be the facility . CM will continue to follow and will assist as needed with dc plans/needs. Prototype Deicer Assembler: Hallie Mariscal DCP- Discharge Planning Updated by [id number]: Hallie Mariscal on 03/15/20 9:[address] CM called [facility] and spoke with Dario. Dario states patient is in the rehab part and he cannot come back today. States he will have to be evaluated again by admissions to come back to the rehab area. CM will continue to follow and assist with discharge planning/needs. DCPIA - Discharge Planning Initial Assessment Updated by [email or web address]: Hallie Mariscal on 03/15/20 2:25 pm * Is the patient Alert and Oriented? Yes * PCP Azalia Bradford NP at [facility] * Pharmacy [facility] in [place] * Preadmission Environment Alf Facility * Facility Name [facility] * ADLs Partial Dependent * Partial ADLs (Assistance needed) Ambulation Dressing Medication Management Toileting Transfers * Equipment Other Oxygen * Other Equipment Portable oxygen * List name and contact numbers for known caregivers / representatives who currently or will assist patient after discharge: Betsy Cortez - DTR - [phone] * Verbal permission to speak to the caregivers and representatives has been obtained from the patient. Yes * Community resources currently utilized Home Health Other * Please name any agencies selected above. Dialysis at [facility] in [place] MWF at [address] health in the past * Additional services required to return to the preadmission environment? No * Can the patient safely return to the preadmission environment? Yes * Has this patient been hospitalized within the prior 30 days at any hospital? Yes Coverage Notice Reviewer: [id number] Mariscal Notice Issued Date-Time: 03/15/2020 14:15 Notice Type: IM Discharge Notice Notice Delivered To: Patient Relationship to Patient: Self Dispatch Coordinator Name: Delivery Method: HAND - Hand Delivered Mariangel Days: Prior Verbal Notification: Recipient Understood Notice: Yes Recipient Signature: Yes Med Rec Note Co-signed by Attending: Coverage Notice Comment: IMM explained, signed, given, copy placed in MR Reviewer: [email or web address] Mariscal Notice Issued Date-Time: 03/15/2020 14:31 Notice Type: Patient Choice Letter Notice Delivered To: Patient Relationship to Patient: Self Dispatch Coordinator Name: Delivery Method: HAND - Hand Delivered Mariangel Days: Prior Verbal Notification: Recipient Understood Notice: Yes Recipient Signature: Yes Med Rec Note Co-signed by Attending: Coverage Notice Comment: ORTIZ for Amie Garcia Last DP export: 03/20/20 10:41 Patient Name: BRANDI CORTEZ Page [id number] at 1327 All edits/amendments must be made on the electronic document DICTATION DATE: 03/20/20 1326 SCIENCE INTERPRETER: LUCAS 03/20/20 1326 RPT#: [id number] DC DATE: STATUS: ADM IN [facility] [address] [place] [address] END OF REPORT
[2020-03-20 15:21] LABS: ANION GAP 13.9 mmol/L (8-16); CALCIUM 8.5 mg/dL (8.5-10.1); CARBON DIOXIDE 28.4 mmol/L (21.0-32.0); CREATININE - SERUM 3.8 mg/dL (0.6-1.3); POTASSIUM - SERUM 4.3 mmol/L (3.5-5.1)
[2020-03-20 15:22] LABS: BASOPHILS 0.2 % (0-2); EOSINOPHILS 2.6 % (0-7); HEMOGLOBIN 9.5 g/dL (13.5-17.5); IMMATURE GRANULOCYTES 0.4 % (0-5); LYMPHOCYTES 5.8 % (15-50); MCH 27.1 pg (26.0-34.0); MCHC 29.7 g/dL (31.0-37.0); MCV 91.2 fL (80.0-100.0); MEAN PLATELET VOLUME 8.9 fL (7.4-10.4); MONOCYTES 11.9 % (2-11); NEUTROPHILS 79.1 % (40-80); PLATELET COUNT 203 10x3/uL (130-400); RBC 3.51 10x6/uL (4.20-6.10); RDW 19.1 % (11.5-14.5); WBC 9.5 10x3/uL (4.8-10.8)
--- NOTE | 2020-03-20 16:10 | MORECARE ---
CASE MANAGEMENT DISCHARGE SUMMARY PATIENT: BRANDI CORTEZ UNIT: [id number] ADM DATE: 03/12/20 AGE: 69 : 50 SEX: M ROOM/BED: D.3581 AUTHOR: NIGHAT,DOC PHYSICIAN: REFERRING PHYSICIAN: ROMARIO CORDON DO DATE OF SERVICE: 03/20/20 Discharge Plan Patient Name: BRANDI CORTEZ Facility: [facility]:[place] : 1950 Planned Disposition: SNF w Planned Readmission Anticipated Discharge Date: 03/23/20 Discharge Date: Expected LOS: 11 Initial Reviewer: [id number] Initial Review Date: 03/15/2020 Generated: 03/20/20 5:09 pm Comments DCP- Discharge Planning Updated by [email or web address]: Denise Carrillo on 03/20/20 3:[address] 1605: CM notified Jun, with [employer] ([phone]), that patient's family will drive him back to [facility] on Monday. 1100: CM contacted Betsy Cortez (dtr) [phone], regarding transportation for DC on Monday. 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 If it's in the afternoon, Betsy will have to take off from her work in order to pick him up. GLENNA spoke with Cody Moffett regarding probable DC on Monday. Per Betina, the patient will return to a SNF bed. Betina asks if family can transport patient back to the facility. GLENNA contacted Betsy Cortez (dtr) [phone], regarding transportation on Monday. Betsy states she cannot take off, but will reach out to her brother to see if he could transport patient back to [facility]. DCP- Discharge Planning Updated by [email or web address]: Hallie Mariscal on 03/19/20 5:[address] UPDATED NOTES WITH WOUND CARE ORDERS FROM DR FLORES FAXED TO [facility]. CM WILL CONTINUE TO FOLLOW AND ASSIST WITH DC PLANNING/NEEDS. DCP- Discharge Planning Updated by [email or web address]: Hallie Mariscal on 03/15/20 1:[address] Patient Name: BRANDI CORTEZ Admission Status: Elective Accout number: [id number] Admission Date: 03-12-2020 : 1950 Admission Diagnosis: Attending: RAYRAY Current LOS: 3 Anticipated DC Date: Planned Disposition: SNF w Planned Readmission Primary Insurance: MEDICARE A & B DC PLAN: [facility] ANTICIPATED NEEDS: P/U to be provided by [facility] CM met with patient to complete initial dc planning assessment. CM educated patient on the CM role and verbal consent given by patient to complete assessment. CM verified patient's address, phone number, and emergency contact phone numbers. Patient is currently in rehab @ [facility] in [place]. At discharge patient plans to return to Nursing and Rehab and feels this is a safe discharge. ORTIZ form signed by patient for return to [facility]. Signed form placed in chart and signed form given to patient. Patient is asking about getting a motorized wheelchair and a ramp built for his home. I informed him that [facility] social workers will assist with his request. He understands that Medicare will not pay for DME needed for the home when discharging to a rehab until close to discharge from rehab. He is considering the possibility of living with family or in [facility] termite inspector if unable to return to his home. Transportation provider at discharge will be the facility . CM will continue to follow and will assist as needed with dc plans/needs. Infant Nanny: Hallie Mariscal DCP- Discharge Planning Updated by [email or web address]: Hallie Mariscal on 03/15/20 9:[address] CM called [facility] and spoke with Dario. Dario states patient is in the rehab part and he cannot come back today. States he will have to be evaluated again by admissions to come back to the rehab area. CM will continue to follow and assist with discharge planning/needs. DCPIA - Discharge Planning Initial Assessment Updated by [id number]: Hallie Mariscal on 03/15/20 2:25 pm * Is the patient Alert and Oriented? Yes * PCP Azalia Bradford DELIVERY MERCHANDISER at [facility] * Pharmacy [facility] in [place] * Preadmission Environment Alf Facility * Facility Name [facility] * ADLs Partial Dependent * Partial ADLs (Assistance needed) Ambulation Dressing Medication Management Toileting Transfers * Equipment Other Oxygen * Other Equipment Portable oxygen * List name and contact numbers for known caregivers / representatives who currently or will assist patient after discharge: Betsy Cortez - DTR - [phone] * Verbal permission to speak to the caregivers and representatives has been obtained from the patient. Yes * Community resources currently utilized Home Health Other * Please name any agencies selected above. Dialysis at [facility] in [place] MWF at [address] home health in the past * Additional services required to return to the preadmission environment? No * Can the patient safely return to the preadmission environment? Yes * Has this patient been hospitalized within the prior 30 days at any hospital? Yes Coverage Notice Reviewer: [id number] Cornelio Mariscal Notice Issued Date-Time: 03/15/2020 14:15 Notice Type: IM Discharge Notice Notice Delivered To: Patient Relationship to Patient: Self Spa Director Name: Delivery Method: HAND - Hand Delivered Mariangel Days: Prior Verbal Notification: Recipient Understood Notice: Yes Recipient Signature: Yes Med Rec Note Co-signed by Attending: Coverage Notice Comment: IMM explained, signed, given, copy placed in MR Reviewer: [id number] Cornelio Mariscal Notice Issued Date-Time: 03/15/2020 14:31 Notice Type: Patient Choice Letter Notice Delivered To: Patient Relationship to Patient: Self Spa Director Name: Delivery Method: HAND - Hand Delivered Mariangel Days: Prior Verbal Notification: Recipient Understood Notice: Yes Recipient Signature: Yes Med Rec Note Co-signed by Attending: Coverage Notice Comment: [facility] for Cody Garcia [facility] DP export: 03/20/20 12:27 Patient Name: BRANDI CORTEZ Page [id number] at 1610 All edits/amendments must be made on the electronic document DICTATION DATE: 03/20/20 1610 TEMPLATE CUTTER: LUCAS 03/20/20 1610 RPT#: [id number] DC DATE: STATUS: ADM IN [facility] [address] [place] [address] END OF REPORT
--- NOTE | 2020-03-20 19:44 | NUR ---
RECIEVED LAYING IN BED WITH EYES OPEN AND TV ON. ALERT AND OREINTED X4. O2@ 2 LITERS PER N/C. IV TO RT FA SL. HEMO SPLIT TO RT CHEST. LARGE BRUISE TO RT FLANK AREA. LOEWER EXTREMITIY WRAPPED BY MD AND REPORTED NOT TO TOUCH IT PER MD. DSG TO RT GREAT TOE. CDI. DENIES ANY NEEDS AT THIS TIME.
[2020-03-20 21:00] VITALS: BP 111/60
[2020-03-21 05:00] VITALS: BP 115/64
[2020-03-21 07:15] LABS: BASOPHILS 0.3 % (0-2); EOSINOPHILS 3.1 % (0-7); HEMATOCRIT 28.3 % (42.0-54.0); HEMOGLOBIN 8.4 g/dL (13.5-17.5); IMMATURE GRANULOCYTES 0.6 % (0-5); LYMPHOCYTES 8.7 % (15-50); MCH 26.9 pg (26.0-34.0); MCHC 29.7 g/dL (31.0-37.0); MCV 90.7 fL (80.0-100.0); MEAN PLATELET VOLUME 8.6 fL (7.4-10.4); MONOCYTES 12.3 % (2-11); PLATELET COUNT 176 10x3/uL (130-400); RBC 3.12 10x6/uL (4.20-6.10)
[2020-03-21 07:40] LABS: ANION GAP 14.1 mmol/L (8-16); BILIRUBIN - TOTAL 1.35 mg/dL (0.2-1.3); CALCIUM 8.7 mg/dL (8.5-10.1); CARBON DIOXIDE 27.1 mmol/L (21.0-32.0); CREATININE - SERUM 4.3 mg/dL (0.6-1.3); POTASSIUM - SERUM 4.2 mmol/L (3.5-5.1); PROTEIN - SERUM 5.8 g/dL (6.4-8.2)
--- NOTE | 2020-03-21 10:12 | MORECARE ---
CASE MANAGEMENT DISCHARGE SUMMARY PATIENT: BRANDI CORTEZ UNIT: [id number] ADM DATE: 03/12/20 AGE: 69 : 50 SEX: M ROOM/BED: D.2102 AUTHOR: NIGHAT,DOC PHYSICIAN: REFERRING PHYSICIAN: ROMARIO CORDON DO DATE OF SERVICE: 03/21/20 Discharge Plan Patient Name: BRANDI CORTEZ Facility: [facility]:[place] : 1950 Planned Disposition: SNF w Planned Readmission Anticipated Discharge Date: 03/23/20 Discharge Date: Expected LOS: 11 Initial Reviewer: [id number] Initial Review Date: 03/15/2020 Generated: 03/21/20 11:11 am Comments DCP- Discharge Planning Updated by [id number]: Denise Carrillo on 03/20/20 3:[address] 1605: CM notified Jun, with [employer] ([phone]), that patient's family will drive him back to [facility] on Monday. 1100: CM contacted Betsy Cortez (dtr) [phone], regarding transportation for DC on Monday. 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 If it's in the afternoon, Betsy will have to take off from her work in order to pick him up. GLENNA spoke with Cody Moffett regarding probable DC on Monday. Per Betina, the patient will return to a SNF bed. Betina asks if family can transport patient back to the facility. GLENNA contacted Betsy Cortez (dtr) [phone], regarding transportation on Monday. Betsy states she cannot take off, but will reach out to her brother to see if he could transport patient back to [facility]. DCP- Discharge Planning Updated by [id number]: Hallie Mariscal on 03/19/20 5:[address] UPDATED NOTES WITH WOUND CARE ORDERS FROM DR FLORES FAXED TO [facility]. CM WILL CONTINUE TO FOLLOW AND ASSIST WITH DC PLANNING/NEEDS. DCP- Discharge Planning Updated by [email or web address]: Hallie Mariscal on 03/15/20 1:[address] Patient Name: BRANDI CORTEZ Admission Status: Elective Accout number: [id number] Admission Date: 03-12-2020 : 1950 Admission Diagnosis: Attending: RAYRAY Current LOS: 3 Anticipated DC Date: Planned Disposition: SNF w Planned Readmission Primary Insurance: MEDICARE A & B DC PLAN: [facility] ANTICIPATED NEEDS: P/U to be provided by [facility] CM met with patient to complete initial dc planning assessment. CM educated patient on the CM role and verbal consent given by patient to complete assessment. CM verified patient's address, phone number, and emergency contact phone numbers. Patient is currently in rehab @ [facility] in [place]. At discharge patient plans to return to Nursing and Rehab and feels this is a safe discharge. ORTIZ form signed by patient for return to [facility]. Signed form placed in chart and signed form given to patient. Patient is asking about getting a motorized wheelchair and a ramp built for his home. I informed him that [facility] social workers will assist with his request. He understands that Medicare will not pay for DME needed for the home when discharging to a rehab until close to discharge from rehab. He is considering the possibility of living with family or in [facility] custodial if unable to return to his home. Transportation provider at discharge will be the facility . CM will continue to follow and will assist as needed with dc plans/needs. Channel Marketing Coordinator: Hallie Mariscal DCP- Discharge Planning Updated by [email or web address]: Hallie Mariscal on 03/15/20 9:[address] CM called [facility] and spoke with Dario. Dario states patient is in the rehab part and he cannot come back today. States he will have to be evaluated again by admissions to come back to the rehab area. CM will continue to follow and assist with discharge planning/needs. DCPIA - Discharge Planning Initial Assessment Updated by [email or web address]: Hallie Mariscal on 03/15/20 2:25 pm * Is the patient Alert and Oriented? Yes * PCP Azalia Bradford DEAN OF EDUCATION at [facility] * Pharmacy [facility] in [place] * Preadmission Environment Care Home Facility * Facility Name [facility] * ADLs Partial Dependent * Partial ADLs (Assistance needed) Ambulation Dressing Medication Management Toileting Transfers * Equipment Other Oxygen * Other Equipment Portable oxygen * List name and contact numbers for known caregivers / representatives who currently or will assist patient after discharge: Betsy Cortez - DTR - [phone] * Verbal permission to speak to the caregivers and representatives has been obtained from the patient. Yes * Community resources currently utilized Home Health Other * Please name any agencies selected above. Dialysis at [facility] in [place] MWF at [address] home health in the past * Additional services required to return to the preadmission environment? No * Can the patient safely return to the preadmission environment? Yes * Has this patient been hospitalized within the prior 30 days at any hospital? Yes Coverage Notice Reviewer: [id number] Cornelio Mariscal Notice Issued Date-Time: 03/15/2020 14:15 Notice Type: IM Discharge Notice Notice Delivered To: Patient Relationship to Patient: Self Fabric And Accessories Estimator Name: Delivery Method: HAND - Hand Delivered Mariangel Days: Prior Verbal Notification: Recipient Understood Notice: Yes Recipient Signature: Yes Med Rec Note Co-signed by Attending: Coverage Notice Comment: IMM explained, signed, given, copy placed in MR Reviewer: [id number] Cornelio Mariscal Notice Issued Date-Time: 03/15/2020 14:31 Notice Type: Patient Choice Letter Notice Delivered To: Patient Relationship to Patient: Self Fabric And Accessories Estimator Name: Delivery Method: HAND - Hand Delivered Mariangel Days: Prior Verbal Notification: Recipient Understood Notice: Yes Recipient Signature: Yes Med Rec Note Co-signed by Attending: Coverage Notice Comment: [facility] for Cody Garcia Last DP export: 03/20/20 3:10 Patient Name: BRANDI CORTEZ Page [id number] at 1012 All edits/amendments must be made on the electronic document DICTATION DATE: 03/21/20 1011 ICING MIXER: LUCAS 03/21/20 1011 RPT#: [id number] DC DATE: STATUS: ADM IN [facility] [address] [place] [address] END OF REPORT
--- NOTE | 2020-03-21 10:51 | MORECARE ---
CASE MANAGEMENT DISCHARGE SUMMARY PATIENT: BRANDI CORTEZ UNIT: [id number] ADM DATE: 03/12/20 AGE: 69 : 50 SEX: M ROOM/BED: D.2104 AUTHOR: NIGHAT,DOC PHYSICIAN: REFERRING PHYSICIAN: ROMARIO CORDON DO DATE OF SERVICE: 03/21/20 Discharge Plan Patient Name: BRANDI CORTEZ Facility: [facility]:[place] : 1950 Planned Disposition: SNF w Planned Readmission Anticipated Discharge Date: 03/23/20 Discharge Date: Expected LOS: 11 Initial Reviewer: [email or web address] Initial Review Date: 03/15/2020 Generated: 03/21/20 11:50 am Comments DCP- Discharge Planning Updated by [email or web address]: Dru Thayer on 03/21/20 9:[address] 1049 Received phone call from Cody David ([phone]). Joann states that the patient is ok to DC back to [facility] as long as transport is arranged either with family or ambulance. Will notify TRAWL NET MAKER and continue to follow and assist as needed with dc plans/needs. 1045 Phone call to Betsy Cortez (dtr) [phone]. Mailbox is full message received. Will attempt to call again soon. 1038 Phone call to Cody Garcia, spoke with Joann ([phone]) in regards to Renal TRAWL NET MAKER request to see if patient can DC to [place] this weekend. Joann states that she will check with her supervisor of officials and phone this CM back. Will await call and continue to follow and assist as needed with dc plans/needs. DCP- Discharge Planning Updated by [email or web address]: Denise Carrillo on 03/20/20 3:[address] 1605: CM notified Jun, with Cody Garcia ([phone]), that patient's family will drive him back to [facility] on Monday. 1100: CM contacted Betsy Cortez (dtr) [phone], regarding transportation for DC on Monday. 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 If it's in the afternoon, Betsy will have to take off from her work in order to pick him up. CM spoke with Cody Moffett regarding probable DC on Monday. Per Betina, the patient will return to a SNF bed. Betina asks if family can transport patient back to the facility. CM contacted Betsy Cortez (dtr) [phone], regarding transportation on Monday. Betsy states she cannot take off, but will reach out to her brother to see if he could transport patient back to [facility]. DCP- Discharge Planning Updated by [email or web address]: Hallie Mariscal on 03/19/20 5:[address] UPDATED NOTES WITH WOUND CARE ORDERS FROM DR FLORES FAXED TO [facility]. CM WILL CONTINUE TO FOLLOW AND ASSIST WITH DC PLANNING/NEEDS. DCP- Discharge Planning Updated by [id number]: Hallie Mariscal on 03/15/20 1:[address] Patient Name: BRANDI CORTEZ Admission Status: Elective Accout number: [id number] Admission Date: 03-12-2020 : 1950 Admission Diagnosis: Attending: RAYRAY Current LOS: 3 Anticipated DC Date: Planned Disposition: SNF w Planned Readmission Primary Insurance: MEDICARE A & B DC PLAN: [facility] ANTICIPATED NEEDS: P/U to be provided by [facility] CM met with patient to complete initial dc planning assessment. CM educated patient on the CM role and verbal consent given by patient to complete assessment. CM verified patient's address, phone number, and emergency contact phone numbers. Patient is currently in rehab @ [facility] in [place]. At discharge patient plans to return to Nursing and Rehab and feels this is a safe discharge. ORTIZ form signed by patient for return to [facility]. Signed form placed in chart and signed form given to patient. Patient is asking about getting a motorized wheelchair and a ramp built for his home. I informed him that [facility] social workers will assist with his request. He understands that Medicare will not pay for DME needed for the home when discharging to a rehab until close to discharge from rehab. He is considering the possibility of living with family or in [facility] half-way if unable to return to his home. Transportation provider at discharge will be the facility . CM will continue to follow and will assist as needed with dc plans/needs. Drill Press Operator For Metal: Hallie Mariscal DCP- Discharge Planning Updated by [email or web address]: Hallie Mariscal on 03/15/20 9:[address] CM called Cody Garcia and spoke with Dario. Dario states patient is in the rehab part and he cannot come back today. States he will have to be evaluated again by admissions to come back to the rehab area. CM will continue to follow and assist with discharge planning/needs. DCPIA - Discharge Planning Initial Assessment Updated by [id number]: Hallie Mariscal on 03/15/20 2:25 pm * Is the patient Alert and Oriented? Yes * PCP Azalia Bradford NP at [facility] * Pharmacy [facility] in [place] * Preadmission Environment Halfway Facility * Facility Name [facility] * ADLs Partial Dependent * Partial ADLs (Assistance needed) Ambulation Dressing Medication Management Toileting Transfers * Equipment Other Oxygen * Other Equipment Portable oxygen * List name and contact numbers for known caregivers / representatives who currently or will assist patient after discharge: Betsy Cortez DTR - [phone] * Verbal permission to speak to the caregivers and representatives has been obtained from the patient. Yes * Community resources currently utilized Home Health Other * Please name any agencies selected above. Dialysis at [facility] in [place] MWF at [address] home health in the past * Additional services required to return to the preadmission environment? No * Can the patient safely return to the preadmission environment? Yes * Has this patient been hospitalized within the prior 30 days at any hospital? Yes Coverage Notice Reviewer: [id number] Cornelio Mariscal Notice Issued Date-Time: 03/15/2020 14:15 Notice Type: IM Discharge Notice Notice Delivered To: Patient Relationship to Patient: Self Manufacturing Inspector Name: Delivery Method: HAND - Hand Delivered Mariangel Days: Prior Verbal Notification: Recipient Understood Notice: Yes Recipient Signature: Yes Med Rec Note Co-signed by Attending: Coverage Notice Comment: IMM explained, signed, given, copy placed in MR Reviewer: [id number] Cornelio Mariscal Notice Issued Date-Time: 03/15/2020 14:31 Notice Type: Patient Choice Letter Notice Delivered To: Patient Relationship to Patient: Self Manufacturing Inspector Name: Delivery Method: HAND - Hand Delivered Mariangel Days: Prior Verbal Notification: Recipient Understood Notice: Yes Recipient Signature: Yes Med Rec Note Co-signed by Attending: Coverage Notice Comment: [facility] for Cody Mooney DP export: 03/21/20 9:12 Patient Name: BRANDI CROTEZ Page 99668 at 1051 All edits/amendments must be made on the electronic document DICTATION DATE: 03/21/201049 RADIO ELECTRONICS TECHNICIAN: LUCAS 03/21/20 105 RPT#: [id number] DC DATE: STATUS: ADM IN [facility] [address] [place] [address] END OF REPORT
[2020-03-21 10:53] VITALS: BP 100/50
--- NOTE | 2020-03-21 11:47 | MORECARE ---
CASE MANAGEMENT DISCHARGE SUMMARY PATIENT: BRANDI CORTEZ UNIT: [id number] ADM DATE: 03/12/20 AGE: 69 : 50 SEX: M ROOM/BED: D.2106 AUTHOR: NIGHAT,DOC PHYSICIAN: REFERRING PHYSICIAN: ROMARIO CORDON DO DATE OF SERVICE: 03/21/20 Discharge Plan Patient Name: BRANDI CORTEZ Facility: [facility]:[place] : 1950 Planned Disposition: SNF w Planned Readmission Anticipated Discharge Date: 03/23/20 Discharge Date: Expected LOS: 11 Initial Reviewer: [id number] Initial Review Date: 03/15/2020 Generated: 03/21/20 12:47 pm Comments DCP- Discharge Planning Updated by [email or web address]: Dru Thayer on 03/21/20 10:[address] 1107 Received phone call from Kezia JONES. Kezia informed this CM that communication with Dr. Cordon suggested that patient remain inpatient this weekend until adequate transport can be arranged. CM will continue to follow and will assist as needed with dc plans/needs. DCP- Discharge Planning Updated by [email or web address]: Dru Thayer on 03/21/20 9:[address] 1049 Received phone call from Cody David ([phone]). Joann states that the patient is ok to DC back to [facility] as long as transport is arranged either with family or ambulance. Will notify FINISH MILL OPERATOR and continue to follow and assist as needed with dc plans/needs. 1045 Phone call to Betsy Cortez (dtr) [phone]. Mailbox is full message received. Will attempt to call again soon. 1038 Phone call to Cody Garcia, spoke with Joann ([phone]) in regards to Renal FINISH MILL OPERATOR request to see if patient can DC to [place] this weekend. Joann states that she will check with her extension supervisor and phone this CM back. Will await call and continue to follow and assist as needed with dc plans/needs. DCP- Discharge Planning Updated by [email or web address]: Denise Carrillo on 03/20/20 3:[address] 1605: CM notified Jun, with Cody Garcia ([phone]), that patient's family will drive him back to [facility] on Monday. 1100: CM contacted Betsy Cortez (dtr) [phone], regarding transportation for DC on Monday. Betsy states if the patient is DC'd sales and marketing analyst on Monday, her brother can drive him, but has to be back at work by 2:00 pm, for his job. If it's in the afternoon, Betsy will have to take off from her work in order to pick him up. CM spoke with Cody Moffett regarding probable DC on Monday. Per Betina, the patient will return to a SNF bed. Betina asks if family can transport patient back to the facility. CM contacted Betsy Cortez (dtr) [phone], regarding transportation on Monday. Betsy states she cannot take off, but will reach out to her brother to see if he could transport patient back to [facility]. DCP- Discharge Planning Updated by [email or web address]: Hallie Mariscal on 03/19/20 5:[address] UPDATED NOTES WITH WOUND CARE ORDERS FROM DR FLORES FAXED TO [facility]. CM WILL CONTINUE TO FOLLOW AND ASSIST WITH DC PLANNING/NEEDS. DCP- Discharge Planning Updated by [id number]: Hallie Mariscal on 03/15/20 1:[address] Patient Name: BRANDI CORTEZ Admission Status: Elective Accout number: [id number] Admission Date: 03-12-2020 : 1950 Admission Diagnosis: Attending: RAYRAY Current LOS: 3 Anticipated DC Date: Planned Disposition: SNF w Planned Readmission Primary Insurance: MEDICARE A & B DC PLAN: [facility] ANTICIPATED NEEDS: P/U to be provided by [facility] CM met with patient to complete initial dc planning assessment. CM educated patient on the CM role and verbal consent given by patient to complete assessment. CM verified patient's address, phone number, and emergency contact phone numbers. Patient is currently in rehab @ [facility] in [place]. At discharge patient plans to return to Nursing and Rehab and feels this is a safe discharge. ORTIZ form signed by patient for return to [facility]. Signed form placed in chart and signed form given to patient. Patient is asking about getting a motorized wheelchair and a ramp built for his home. I informed him that [facility] social workers will assist with his request. He understands that Medicare will not pay for DME needed for the home when discharging to a rehab until close to discharge from rehab. He is considering the possibility of living with family or in [facility] terminal press operator if unable to return to his home. Transportation provider at discharge will be the facility . CM will continue to follow and will assist as needed with dc plans/needs. Freight Car Cleaner: Hallie Mariscal DCP- Discharge Planning Updated by [email or web address]: Hallie Mariscal on 03/15/20 9:[address] CM called [facility] and spoke with Dario. Dario states patient is in the rehab part and he cannot come back today. States he will have to be evaluated again by admissions to come back to the rehab area. CM will continue to follow and assist with discharge planning/needs. DCPIA - Discharge Planning Initial Assessment Updated by [id number]: Hallie Mariscal on 03/15/20 2:25 pm * Is the patient Alert and Oriented? Yes * PCP Azalia Bradford NP at [facility] * Pharmacy [facility] in [place] * Preadmission Environment Alf Facility * Facility Name [facility] * ADLs Partial Dependent * Partial ADLs (Assistance needed) Ambulation Dressing Medication Management Toileting Transfers * Equipment Other Oxygen * Other Equipment Portable oxygen * List name and contact numbers for known caregivers / representatives who currently or will assist patient after discharge: Betsy Cortez - R - [phone] * Verbal permission to speak to the caregivers and representatives has been obtained from the patient. Yes * Community resources currently utilized Home Health Other * Please name any agencies selected above. Dialysis at [facility] in [place] MWF at [address] home health in the past * Additional services required to return to the preadmission environment? No * Can the patient safely return to the preadmission environment? Yes * Has this patient been hospitalized within the prior 30 days at any hospital? Yes Coverage Notice Reviewer: [id number] - Hallie Mariscal Notice Issued Date-Time: 03/15/2020 14:15 Notice Type: IM Discharge Notice Notice Delivered To: Patient Relationship to Patient: Self Cook House Laborer Name: Delivery Method: HAND - Hand Delivered Mariangel Days: Prior Verbal Notification: Recipient Understood Notice: Yes Recipient Signature: Yes Med Rec Note Co-signed by Attending: Coverage Notice Comment: IMM explained, signed, given, copy placed in MR Reviewer: [id number] Cornelio Mariscal Notice Issued Date-Time: 03/15/2020 14:31 Notice Type: Patient Choice Letter Notice Delivered To: Patient Relationship to Patient: Self Cook House Laborer Name: Delivery Method: HAND - Hand Delivered Mariangel Days: Prior Verbal Notification: Recipient Understood Notice: Yes Recipient Signature: Yes Med Rec Note Co-signed by Attending: Coverage Notice Comment: [facility] for Cody Garcia Last DP export: 03/21/20 9:51 Patient Name: BRANDI CORTEZ Page [id number] at 1147 All edits/amendments must be made on the electronic document DICTATION DATE: 03/21/20 1147 GRAPHITE MILL OPERATOR: LUCAS 03/21/20 1147 RPT#: [id number] DC DATE: STATUS: ADM IN [facility] [address] [place] [address] END OF REPORT
--- NOTE | 2020-03-21 14:34 | NUR ---
0900-ALL AM MEDS ADMINISTERED/ORDER, PT REFUSES TO GO FOR CT SCAN AND ALSO REFUSING DIALYSIS--[place]UY [place] [facility] [place] NOTIFIED OF PT REFUSING TREATMENT. 1000-PT SITTING ON SIDE OF BED TAKING DRESSING OFF LEFT LOWER LEG--NURSE QUESTIONED PT WHY IS HE TAKING OFF HIS DRESSING--PT STATES "THE DOCTOR TOLD ME TO." NURSE CLEANS WOUNDS TO LEFT LOWER LEG AND TO RIGHT BIG TOE W/NS AND REDRESSES PT'S WOUNDS-PT C/O PAIN NORCO ADMINISTERED/ORDER, PT REFUSES TO LAY BACK ON BED AND PROP LEG UP. WILL CONTINUE TO MONITOR. 1100-PT CONTINUES TO C/O PAIN TO LEFT LOWER LEG WOUND--NURSE PLACES ABD PADS SOAKED W/STERILE WATER ON THE WOUND AND ENCOURAGES TO LIE BACK AND PROP UP LEG, PT CONTINUES TO REFUSE. WILL CONTINUE TO MONITOR. 1300-PT STATES HE IS FEELING BETTER NOW. DENIES ANY NEEDS AT THIS TIME. NO DISTRESS NOTED.
--- NOTE | 2020-03-21 17:34 | NUR ---
1500-LYING IN BED W/EYES CLOSED, NO DISTRESS NOTED. 1700-LYING IN BED W/EYES CLOSED, AROUSES EASILY TO VERBAL STIMULI. RESP EVEN AND UNLABORED ON RA. NO DISTRESS NOTED.
--- NOTE | 2020-03-21 19:53 | NUR ---
RECIEVED UP IN BED WITH EYES OPEN AND TV ON. ALERT AND ORIENTED WITH PERIODS OF CONFUSION. IV TO RT FA SL. HEMO SPLIT TO LT CHEST. TELEMETRY IN PLACE. DENIES ANY NEEDS AT THIS TIME.
[2020-03-21 20:30] VITALS: BP 103/43
[2020-03-22 00:30] VITALS: BP 113/63
[2020-03-22 04:30] VITALS: BP 119/55
[2020-03-22 07:59] LABS: BASOPHILS 0.1 % (0-2); EOSINOPHILS 0.2 % (0-7); HEMATOCRIT 31.1 % (42.0-54.0); HEMOGLOBIN 9.3 g/dL (13.5-17.5); IMMATURE GRANULOCYTES 0.3 % (0-5); LYMPHOCYTES 10.4 % (15-50); MCH 27.2 pg (26.0-34.0); MCHC 29.9 g/dL (31.0-37.0); MCV 90.9 fL (80.0-100.0); MEAN PLATELET VOLUME 9.2 fL (7.4-10.4); MONOCYTES 3.8 % (2-11); NEUTROPHILS 85.2 % (40-80); PLATELET COUNT 187 10x3/uL (130-400); RBC 3.42 10x6/uL (4.20-6.10)
[2020-03-22 08:01] LABS: WBC 10.7 10x3/uL (4.8-10.8)
[2020-03-22 08:04] LABS: BILIRUBIN - TOTAL 1.8 mg/dL (0.2-1.3); CARBON DIOXIDE 24.9 mmol/L (21.0-32.0); PROTEIN - SERUM 6.1 g/dL (6.4-8.2)
[2020-03-22 08:05] LABS: POTASSIUM - SERUM 4.9 mmol/L (3.5-5.1)
[2020-03-22 09:24] VITALS: BP 143/72
[2020-03-22 12:46] VITALS: BP 93/57
--- NOTE | 2020-03-22 14:45 | NUR ---
DRSG CHANGED TO BLISTERS LEFT LEG WITH NONADHESIVE DRSG.
[2020-03-22 17:30] VITALS: BP 97/48
--- NOTE | 2020-03-22 19:59 | NUR ---
ALERT AND ORIENTED X4. UP WITH EXTENSIVE ASSIST. ASSISTED UP TO BEDSIDE COMMODE. HAD LARGE BM. REQUIRED EXTENSIVE ASSIT TO GET ON AND OFF THE TOILET. DENIES ANY OTHER NEEDS.
[2020-03-22 20:00] VITALS: BP 169/67
[2020-03-23] VITALS: BP 87/57
[2020-03-23 04:00] VITALS: BP 82/47
[2020-03-23 06:17] LABS: BASOPHILS 0.1 % (0-2); EOSINOPHILS 0.5 % (0-7); HEMOGLOBIN 9.5 g/dL (13.5-17.5); IMMATURE GRANULOCYTES 0.3 % (0-5); LYMPHOCYTES 10.4 % (15-50); MCH 26.8 pg (26.0-34.0); MCHC 29.7 g/dL (31.0-37.0); MCV 90.4 fL (80.0-100.0); MEAN PLATELET VOLUME 9.1 fL (7.4-10.4); MONOCYTES 6.7 % (2-11); PLATELET COUNT 205 10x3/uL (130-400); RBC 3.54 10x6/uL (4.20-6.10); RDW 18.6 % (11.5-14.5); WBC 9.3 10x3/uL (4.8-10.8)
[2020-03-23 06:40] LABS: ANION GAP 15.7 mmol/L (8-16); BILIRUBIN - TOTAL 1.95 mg/dL (0.2-1.3); CALCIUM 9.1 mg/dL (8.5-10.1); CARBON DIOXIDE 26.5 mmol/L (21.0-32.0); POTASSIUM - SERUM 5.2 mmol/L (3.5-5.1); PROTEIN - SERUM 6.4 g/dL (6.4-8.2)
--- NOTE | 2020-03-23 09:39 | NUR ---
PT IS REFUSING TO GO TO DIALYSIS THIS AM, STATES "I JUST WANNA GO HOME, IM NOT DOING DIALYSIS TODAY." DIALYSIS NURSE NOTIFIED OF PT REFUSING TREATMENT.
[2020-03-23 10:23] VITALS: BP 103/66
[2020-03-23] MEDS ORDERED: MIDODRINE HCL5 MG PO (11:03)
[2020-03-23] MEDS ORDERED: ALBUTEROL2.5 MG/3 M INH (11:03)
[2020-03-23] MEDS ORDERED: ELIQUIS2.5 MG PO (11:04)
[2020-03-23] MEDS ORDERED: XANAX0.25 MG PO (11:05)
[2020-03-23] MEDS ORDERED: GABAPENTIN100 MG PO (11:06)
[2020-03-23] MEDS ORDERED: LEXAPRO20 MG PO (11:06)
[2020-03-23] MEDS ORDERED: HYDROCODON-ACE1 EAC7 PO (11:07)
[2020-03-23] MEDS ORDERED: KLONOPIN0.5 MG PO (11:07)
[2020-03-23] MEDS ORDERED: TORSEMIDE20 MG PO (11:07)
--- NOTE | 2020-03-23 11:49 | MORECARE ---
CASE MANAGEMENT DISCHARGE SUMMARY PATIENT: BRANDI CORTEZ UNIT: [id number] ADM DATE: 03/12/20 AGE: 70 : 50 SEX: M ROOM/BED: D.2104 AUTHOR: NIGHAT,DOC PHYSICIAN: REFERRING PHYSICIAN: ROMARIO CORDON DO DATE OF SERVICE: 03/23/20 Discharge Plan Patient Name: BRANDI CORTEZ Facility: [facility]:[place] : 1950 Planned Disposition: SNF w Planned Readmission Anticipated Discharge Date: 03/23/20 Discharge Date: Expected LOS: 11 Initial Reviewer: [id number] Initial Review Date: 03/15/2020 Generated: 03/23/20 12:48 pm Comments DCP- Discharge Planning Updated by [id number]: Denise Carrillo on 03/23/20 10:[address] CM attempted to contact patient's daughter, Betsy for transportation, but her mail box is full. Contacted Betina with [facility], regarding transportation back to the facility. Betina states the patient will require ambulance transportation. Patient is on 5L NC. Dr. Cordon notified, patient is in agreement to same. Patient's nurse made aware of same. DCP- Discharge Planning Updated by [email or web address]: Dru Thayer on 03/21/20 10:[address] 1107 Received phone call from Kezia JONES. Kezia informed this CM that communication with Dr. Cordon suggested that patient remain inpatient this weekend until adequate transport can be arranged. CM will continue to follow and will assist as needed with dc plans/needs. DCP- Discharge Planning Updated by [id number]: Dru Thayer on 03/21/20 9:[address] 1049 Received phone call from Amie David ([phone]). Joann states that the patient is ok to DC back to [facility] as long as transport is arranged either with family or ambulance. Will notify ROBERT and continue to follow and assist as needed with dc plans/needs. 1045 Phone call to Betsy Cortez (dtr) [phone]. Mailbox is full message received. Will attempt to call again soon. 1038 Phone call to Amie Garcia, spoke with Joann ([phone]) in regards to Renal AVIONICS SHOP SUPERVISOR request to see if patient can DC to [place] this weekend. Joann states that she will check with her furnace room supervisor and phone this CM back. Will await call and continue to follow and assist as needed with dc plans/needs. DCP- Discharge Planning Updated by [email or web address]: Denise Carrillo on 03/20/20 3:[address] 1605: CM notified Jun, with [facility] Garcia ([phone]), that patient's family will drive him back to [facility] on Monday. 1100: CM contacted Betsy Cortez (dtr) [phone], regarding transportation for DC on Monday. Betsy states if the patient is DC'd electronics mechanic apprentice on Monday, her brother can drive him, but has to be back at work by 2:00 pm, for his job. If it's in the afternoon, Betsy will have to take off from her work in order to pick him up. GLENNA spoke with Amie Moffett regarding probable DC on Monday. Per Betina, the patient will return to a SNF bed. Betina asks if family can transport patient back to the facility. GLENNA contacted Betsy Cortez (dtr) [phone], regarding transportation on Monday. Betsy states she cannot take off, but will reach out to her brother to see if he could transport patient back to [facility]. DCP- Discharge Planning Updated by [email or web address]: Hallie Mariscal on 03/19/20 5:[address] UPDATED NOTES WITH WOUND CARE ORDERS FROM DR FLORES FAXED TO [facility]ARC[facility]. CM WILL CONTINUE TO FOLLOW AND ASSIST WITH DC PLANNING/NEEDS. DCP- Discharge Planning Updated by [id number]: Hallie Mariscal on 03/15/20 1:[address] Patient Name: BRANDI CORTEZ Admission Status: Elective Accout number: [id number] Admission Date: 03-12-2020 : 1950 Admission Diagnosis: Attending: RAYRAY Current LOS: 3 Anticipated DC Date: Planned Disposition: SNF w Planned Readmission Primary Insurance: MEDICARE A & B DC PLAN: [facility] ANTICIPATED NEEDS: P/U to be provided by Amie Garcia CM met with patient to complete initial dc planning assessment. CM educated patient on the CM role and verbal consent given by patient to complete assessment. CM verified patient's address, phone number, and emergency contact phone numbers. Patient is currently in rehab @ [facility] in [place]. At discharge patient plans to return to Nursing and Rehab and feels this is a safe discharge. ORTIZ form signed by patient for return to [facility]. Signed form placed in chart and signed form given to patient. Patient is asking about getting a motorized wheelchair and a ramp built for his home. I informed him that [facility] social workers will assist with his request. He understands that Medicare will not pay for DME needed for the home when discharging to a rehab until close to discharge from rehab. He is considering the possibility of living with family or in [facility] shelter if unable to return to his home. Transportation provider at discharge will be the facility . CM will continue to follow and will assist as needed with dc plans/needs. Office Cashier: Hallie Mariscal DCP- Discharge Planning Updated by [email or web address]: Hallie Mariscal on 03/15/20 9:[address] CM called [facility] and spoke with Dario. Dario states patient is in the rehab part and he cannot come back today. States he will have to be evaluated again by admissions to come back to the rehab area. CM will continue to follow and assist with discharge planning/needs. DCPIA - Discharge Planning Initial Assessment Updated by [id number]: Hallie Mariscal on 03/15/20 2:25 pm * Is the patient Alert and Oriented? Yes * PCP Azalia Bradford NP at [facility] * Pharmacy [facility] in [place] * Preadmission Environment Residential Facility * Facility Name [facility] * ADLs Partial Dependent * Partial ADLs (Assistance needed) Ambulation Dressing Medication Management Toileting Transfers * Equipment Other Oxygen * Other Equipment Portable oxygen * List name and contact numbers for known caregivers / representatives who currently or will assist patient after discharge: Betsy Cortez - DTR - [phone] * Verbal permission to speak to the caregivers and representatives has been obtained from the patient. Yes * Community resources currently utilized Home Health Other * Please name any agencies selected above. Dialysis at [facility] in [place] MWF at [address] Had [place] home health in the past * Additional services required to return to the preadmission environment? No * Can the patient safely return to the preadmission environment? Yes * Has this patient been hospitalized within the prior 30 days at any hospital? Yes Coverage Notice Reviewer: [id number] Cornelio Mariscal Notice Issued Date-Time: 03/15/2020 14:15 Notice Type: IM Discharge Notice Notice Delivered To: Patient Relationship to Patient: Self Fieldwork Coordinator Name: Delivery Method: HAND - Hand Delivered Mariangel Days: Prior Verbal Notification: Recipient Understood Notice: Yes Recipient Signature: Yes Med Rec Note Co-signed by Attending: Coverage Notice Comment: IMM explained, signed, given, copy placed in MR Reviewer: [id number] Cornelio Mariscal Notice Issued Date-Time: 03/15/2020 14:31 Notice Type: Patient Choice Letter Notice Delivered To: Patient Relationship to Patient: Self Fieldwork Coordinator Name: Delivery Method: HAND - Hand Delivered Mariangel Days: Prior Verbal Notification: Recipient Understood Notice: Yes Recipient Signature: Yes Med Rec Note Co-signed by Attending: Coverage Notice Comment: [facility] jesu [place] Reviewer: [id number] Cornelio Carrillo Notice Issued Date-Time: 03/23/2020 11:40 Notice Type: IM Discharge Notice Notice Delivered To: Patient Relationship to Patient: Self Fieldwork Coordinator Name: Brandi Cortez Delivery Method: HAND - Hand Delivered Mariangel Days: Prior Verbal Notification: Recipient Understood Notice: Yes Recipient Signature: Yes Med Rec Note Co-signed by Attending: Coverage Notice Comment: DC IMM signed and placed in DC packet. Original to chart. Last DP export: 03/21/20 10:47 Patient Name: BRANDI CORTEZ Page [id number] at 1149 All edits/amendments must be made on the electronic document DICTATION DATE: 03/23/20 1148 MANAGER CASH: LUCAS 03/23/20 1148 RPT#: [id number] DC DATE: STATUS: ADM IN [facility] [address] [place] [address] END OF REPORT
--- NOTE | 2020-03-23 15:10 | NUR ---
JOSS GOLDSTEIN EXPLAINED THAT PT NEEDS TRANSFER FROM THIS HOSPITAL TO [facility] IN [place]--SPOKE TO [place] IT WILL BE ABOUT 2 HOURS BEFORE THE AMBULANCE CAN BE HERE FOR THE TRANSFER.
--- NOTE | 2020-03-23 17:16 | NUR ---
REMOVED PT'S IV FROM RT FA, CATH INTACT, BANDAGE APPLIED. PT TOLERATED WELL. REPORT CALLED TO JAZZY AT [facility] DURING THE DAY. PT DC'D OUT OF HOSPITAL/STRETCHER W/AMBULANCE STAFF AT THIS TIME W/ALL DC PAPERWORK AND ALL PT'S PERSONAL BELONGINGS GIVEN TO AMBULANCE STAFF.
--- NOTE | 2020-03-25 09:29 | MORECARE ---
CASE MANAGEMENT DISCHARGE SUMMARY PATIENT: BRANDI CORTEZ UNIT: [id number] ADM DATE: 03/12/20 AGE: 70 : 50 SEX: M ROOM/BED: D.2104 AUTHOR: NIGHAT,DOC PHYSICIAN: REFERRING PHYSICIAN: ROMARIO CORDON DO DATE OF SERVICE: 03/25/20 Discharge Plan Patient Name: BRANDI CORTEZ Facility: [facility]:[place] : 1950 Planned Disposition: SNF w Planned Readmission Anticipated Discharge Date: 03/23/20 Discharge Date: 03/23/2020 Expected LOS: 11 Initial Reviewer: [id number] Initial Review Date: 03/15/2020 Generated: 03/25/20 10:28 am Comments DCP- Discharge Planning Updated by [id number]: Denise Carrillo on 03/23/20 10:[address] CM attempted to contact patient's daughter, Betsy for transportation, but her mail box is full. Contacted Betina with [facility] Garcia, regarding transportation back to the facility. Betina states the patient will require ambulance transportation. Patient is on 5L NC. Dr. Cordon notified, patient is in agreement to same. Patient's nurse made aware of same. DCP- Discharge Planning Updated by [id number]: Dru Thayer on 03/21/20 10:[address] 1107 Received phone call from Kezia JONES. Kezia informed this CM that communication with Dr. Cordon suggested that patient remain inpatient this weekend until adequate transport can be arranged. CM will continue to follow and will assist as needed with dc plans/needs. DCP- Discharge Planning Updated by [email or web address]: Dru Thayer on 03/21/20 9:[address] 1049 Received phone call from Amie David ([phone]). Joann states that the patient is ok to DC back to [facility] as long as transport is arranged either with family or ambulance. Will notify ROBERT and continue to follow and assist as needed with dc plans/needs. 1045 Phone call to Betsy Cortez (dtr) [phone]. Mailbox is full message received. Will attempt to call again soon. 1038 Phone call to Amie Garcia, spoke with Joann ([phone]) in regards to Renal CIRCUIT BREAKER MECHANIC request to see if patient can DC to [place] this weekend. Joann states that she will check with her cloth mercerizing supervisor and phone this CM back. Will await call and continue to follow and assist as needed with dc plans/needs. DCP- Discharge Planning Updated by [id number]: Denise Carrillo on 03/20/20 3:[address] 1605: CM notified Jun, with Amie Garcia ([phone]), that patient's family will drive him back to [facility] on Monday. 1100: CM contacted Betsy Cortez (dtr) [phone], regarding transportation for DC on Monday. 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 If it's in the afternoon, Betsy will have to take off from her work in order to pick him up. CM spoke with Amie Moffett regarding probable DC on Monday. Per Betina, the patient will return to a SNF bed. Betina asks if family can transport patient back to the facility. GLENNA contacted Betsy Cortez (dtr) [phone], regarding transportation on Monday. Betsy states she cannot take off, but will reach out to her brother to see if he could transport patient back to [facility]. DCP- Discharge Planning Updated by [email or web address]: Hallie Mariscal on 03/19/20 5:[address] UPDATED NOTES WITH WOUND CARE ORDERS FROM DR FLORES FAXED TO [facility] [place]. CM WILL CONTINUE TO FOLLOW AND ASSIST WITH DC PLANNING/NEEDS. DCP- Discharge Planning Updated by [id number]: Hallie Mariscal on 03/15/20 1:[address] Patient Name: BRANDI CORTEZ Admission Status: Elective Accout number: [id number] Admission Date: 03-12-2020 : 1950 Admission Diagnosis: Attending: RAYRAY Current LOS: 3 Anticipated DC Date: Planned Disposition: SNF w Planned Readmission Primary Insurance: MEDICARE A & B DC PLAN: [facility] ANTICIPATED NEEDS: P/U to be provided by [facility] CM met with patient to complete initial dc planning assessment. CM educated patient on the CM role and verbal consent given by patient to complete assessment. CM verified patient's address, phone number, and emergency contact phone numbers. Patient is currently in rehab @ [facility] in [place]. At discharge patient plans to return to Nursing and Rehab and feels this is a safe discharge. ORTIZ form signed by patient for return to [facility]. Signed form placed in chart and signed form given to patient. Patient is asking about getting a motorized wheelchair and a ramp built for his home. I informed him that [facility] social workers will assist with his request. He understands that Medicare will not pay for DME needed for the home when discharging to a rehab until close to discharge from rehab. He is considering the possibility of living with family or in [facility] if unable to return to his home. Transportation provider at discharge will be the facility . CM will continue to follow and will assist as needed with dc plans/needs. Lpc: Hallie Mariscal DCP- Discharge Planning Updated by [email or web address]: Hallie Mariscal on 03/15/20 9:[address] CM called [facility] and spoke with Dario. Dario states patient is in the rehab part and he cannot come back today. States he will have to be evaluated again by admissions to come back to the rehab area. CM will continue to follow and assist with discharge planning/needs. DCPIA - Discharge Planning Initial Assessment Updated by [id number]: Hallie Mariscal on 03/15/20 2:25 pm * Is the patient Alert and Oriented? Yes * PCP Azalia Bradford NP at [facility] * Pharmacy [facility] in [place] * Preadmission Environment Care Home Facility * Facility Name [facility] * ADLs Partial Dependent * Partial ADLs (Assistance needed) Ambulation Dressing Medication Management Toileting Transfers * Equipment Other Oxygen * Other Equipment Portable oxygen * List name and contact numbers for known caregivers / representatives who currently or will assist patient after discharge: Betsy Cortez - DTR - [phone] * Verbal permission to speak to the caregivers and representatives has been obtained from the patient. Yes * Community resources currently utilized Home Health Other * Please name any agencies selected above. Dialysis at [facility] in [place] MWF at [address] Had [facility] home health in the past * Additional services required to return to the preadmission environment? No * Can the patient safely return to the preadmission environment? Yes * Has this patient been hospitalized within the prior 30 days at any hospital? Yes Coverage Notice Reviewer: [id number] Mariscal Notice Issued Date-Time: 03/15/2020 14:15 Notice Type: IM Discharge Notice Notice Delivered To: Patient Relationship to Patient: Self Peanut Separator Name: Delivery Method: HAND - Hand Delivered Mariangel Days: Prior Verbal Notification: Recipient Understood Notice: Yes Recipient Signature: Yes Med Rec Note Co-signed by Attending: Coverage Notice Comment: IMM explained, signed, given, copy placed in MR Reviewer: [id number] Cornelio Mariscal Notice Issued Date-Time: 03/15/2020 14:31 Notice Type: Patient Choice Letter Notice Delivered To: Patient Relationship to Patient: Self Peanut Separator Name: Delivery Method: HAND - Hand Delivered Mariangel Days: Prior Verbal Notification: Recipient Understood Notice: Yes Recipient Signature: Yes Med Rec Note Co-signed by Attending: Coverage Notice Comment: [facility] jesu Amie Garcia Reviewer: [id number] Cornelio Carrillo Notice Issued Date-Time: 03/23/2020 11:40 Notice Type: IM Discharge Notice Notice Delivered To: Patient Relationship to Patient: Self Peanut Separator Name: Brandi Cortez Delivery Method: HAND - Hand Delivered Mariangel Days: Prior Verbal Notification: Recipient Understood Notice: Yes Recipient Signature: Yes Med Rec Note Co-signed by Attending: Coverage Notice Comment: DC IMM signed and placed in DC packet. Original to chart. Last DP export: 03/23/20 10:49 Patient Name: BRANDI CORTEZ Page [id number] at 0929 All edits/amendments must be made on the electronic document DICTATION DATE: 03/25/20928 SKIP LOADER: LUCAS 03/25/20928 RPT#: [id number] DC DATE:03/23/20 STATUS: DIS IN [facility] [address] [place] [address] END OF REPORT
== END 2020-03-23 17:19 | DRG 314 ==
LOC: D.M2 14:12
PROVIDERS: Family Medicine; General Practice; Internal Medicine Nephrology; Specialist; ADMIT Internal Medicine; ATTEND Internal Medicine
PROC: 5A1D70Z Performance of Urinary Filtration, Intermittent, Less than 6 Hours Per Day (ICD-10-PCS; principal; 2020-03-12)
PROC: 0W9G3ZZ Drainage of Peritoneal Cavity, Percutaneous Approach (ICD-10-PCS; 2020-03-18)
DX: T82.838A Hemorrhage due to vascular prosthetic devices, implants and grafts, initial encounter (principal); N18.6 End stage renal disease; I50.43 Acute on chronic combined systolic (congestive) and diastolic (congestive) heart failure; N17.0 Acute kidney failure with tubular necrosis; I13.2 Hypertensive heart and chronic kidney disease with heart failure and with stage 5 chronic kidney disease, or end stage renal disease; I82.622 Acute embolism and thrombosis of deep veins of left upper extremity; L03.116 Cellulitis of left lower limb; E87.1 Hypo-osmolality and hyponatremia; E11.22 Type 2 diabetes mellitus with diabetic chronic kidney disease; E11.65 Type 2 diabetes mellitus with hyperglycemia; Y84.9 Medical procedure, unspecified as the cause of abnormal reaction of the patient, or of later complication, without mention of misadventure at the time of the procedure; K74.60 Unspecified cirrhosis of liver; D63.1 Anemia in chronic kidney disease; J44.9 Chronic obstructive pulmonary disease, unspecified; I25.5 Ischemic cardiomyopathy; I25.10 Atherosclerotic heart disease of native coronary artery without angina pectoris; I95.9 Hypotension, unspecified; I48.0 Paroxysmal atrial fibrillation; S90.421A Blister (nonthermal), right great toe, initial encounter; S80.822A Blister (nonthermal), left lower leg, initial encounter; X58.XXXA Exposure to other specified factors, initial encounter; F41.1 Generalized anxiety disorder; F41.0 Panic disorder [episodic paroxysmal anxiety]; Z95.0 Presence of cardiac pacemaker; Z87.891 Personal history of nicotine dependence